=== PATIENT | female | born 1955 | race Asian ===

== ENCOUNTER 2016-02-13 11:48 | Observation (INO) | payer OTHER ==
[~2016-02-13] VITALS: Ht 144.8 cm; Wt 51.9 kg
[~2016-02-13 11:48] MED LIST: ACET325T9 PO; DONE5TAB33 PO; HYDR-971 PO; MEMA10TA PO; SERT50TA PO; SIMV40TA3 PO
[2016-02-13] MEDS ORDERED: ASPIRIN 81 MG TAB.CHEW PO ONE (12:15)
[2016-02-13] MEDS ORDERED: MORPHINE SULFATE 2 MG/ML DISP.SYRIN. IV PRN ×3 (12:15→15:47)
[2016-02-13] MEDS ORDERED: NITROGLYCERIN SUBLINGUAL 0.4 MG BOTTLE OF 25. SL PRN (12:15)
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
[2016-02-13 12:40] LABS: CALCIUM 9.3 mg/dL (8.5-10.1); CREATININE 0.8 mg/dL (0.6-1.0); GFR 72.9; POTASSIUM 3.8 mmol/L (3.5-5.1)
[2016-02-13 12:46] LABS: ALBUMIN 3.8 g/dL (3.4-5.0); DIRECT BILIRUBIN 0.1 mg/dL (0.0-0.2); TOTAL BILIRUBIN 0.4 mg/dL (0.2-1.0)
[2016-02-13 12:47] LABS: BASO % 1 % (0-3); EOS % 1 % (0-3); HEMATOCRIT 38.1 % (36.0-47.0); HEMOGLOBIN 12.9 g/dL (12.0-15.5); LYMPH % 37 % (24-48); MEAN CORPUSCULAR HEMOGLOBIN 31 pg (25-35); MEAN CORPUSCULAR HGB CONC 34 g/dL (31-37); MEAN CORPUSCULAR VOLUME 91 fL (79-100); MONO % 9 % (0-9); NEUT % 52 % (31-73); PLATELET COUNT 240 x10^3/uL (140-400); RED BLOOD COUNT 4.19 x10^6/uL (3.50-5.40); RED CELL DISTRIBUTION WIDTH 13.7 % (11.5-14.5); WHITE BLOOD COUNT 5.3 x10^3/uL (4.0-11.0)
[2016-02-13] MEDS ORDERED: ONDANSETRON PF 4 MG/2 ML VIAL. IV PRN (13:00)
[2016-02-13] MEDS ORDERED: HYDROMORPHONE 2 MG/ML VIAL. IV PRN (13:00)
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
--- NOTE | 2016-02-13 14:25 | EKG ---
[facility] [address] [place] [address] Test Date: 2016-02-13 Test Time: 12:00:35 Pat Name: KIESHA HE Department: Room: 563 1 Gender: F Roll Scale Man: : 1955 Requested By: DENNIS NORRIS Order Number: [id number] Reading MD: Talia Recinos Measurements Intervals Stem Rate: 50 P: 53 SD: 172 QRS: 17 QRSD: 84 T: 24 QT: 440 QTc: 400 Interpretive Statements SINUS RHYTHM T ABNORMALITY IN ANTEROSEPTAL LEADS CONSIDER MYOCARDIAL ISCHEMIA ABNORMAL ECG Electronically Signed On 02-16-2016 23:20:19 ENGINE LATHE TENDER by Talia Recinos
[2016-02-13 14:55] VITALS: BP 121/71
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
[2016-02-13] MEDS ORDERED: ACETAMINOPHEN 325 MG TABLET. PO PRN (15:45)
[2016-02-13] MEDS ORDERED: OXYCODONE IR 5 MG TABLET. PO PRN ×2 (16:00)
[2016-02-13 16:09] VITALS: BP 121/71
[2016-02-13 19:00] VITALS: BP 90/60
[2016-02-13] MEDS ORDERED: OXYC5TAB PO (20:01)
--- NOTE | 2016-02-13 20:01 | DISCH ---
DISCHARGE INSTRUCTIONS Condition on Discharge Condition on Discharge: Stable Activity After Discharge Activity Instructions for Disc: No restrictions Diet after Discharge Diet after Discharge: Regular Contacting the DR. after DC Call your doctor for: If your condition worsens Follow-Up Follow up with: PCP in 1 week SONIA ALICEA MD Feb 13, 2016 20:01
[2016-02-13] MEDS ORDERED: SIMVASTATIN 40 MG TABLET. PO SCH (21:00)
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
[2016-02-13 23:00] VITALS: BP 89/62
[2016-02-14] MEDS ORDERED: IV NORMAL SALINE 500ML BAG 500 ML IV ONE (00:30)
[2016-02-14 03:00] VITALS: BP 115/71
--- NOTE | 2016-02-14 08:02 | ACF ---
Admission Forms Criteria PAIN MANAGEMENT [facility] Clinical Indications for Admission to Inpatient Care (Place 'X' for any and all applicable criteria): Hospital admission is needed for appropriate care of the patient because of ANY ONE of the following are present (1)(2)(3)(4)(5): [X]I. Severe pain requiring acute inpatient management as indicated by ALL of the following (2)(5)(10): [X]a) Continuous or frequent (eg, every 2 to 4 hours) parenteral analgesics required [A] [ ]b) Necessity (ie, alternative approaches not effective) for analgesic regimen that can only be performed or initiated in inpatient setting [ ]II. Pain causing debilitation to the point of inability to function or be supported at any other level of care [ ]III. Severe side effects from pain medications as indicated by ANY ONE of the following (12)(13)(14)(15): [ ]a) Uncontrollable seizures [ ]b) Cardiac arrhythmias [ ]c) Severe volume depletion [ ]d) Vomiting that is uncontrollable at any other level of care [ ]e) Altered mental status (Debra coma scale score less than 13) [ ]f) Obstipation with inadequate GI function to maintain nutrition [ ]g) Dehydration that is severe or persistent The original [employer] content created by [employer] has been revised. The portions of the content which have been revised are identified through the use of italic text or in bold, and [facility] has neither reviewed nor approved the modified material. All other unmodified content is copyright [employer]. Please see references footnoted in the original [employer] edition 2016 Admission Criteria Met?: Yes ALCIDES EGAN Feb 14, 2016 08:02
[2016-02-14] MEDS ORDERED: DONEPEZIL HCL 5 MG TABLET. PO SCH (09:00)
[2016-02-14] MEDS ORDERED: SERTRALINE 50 MG TABLET. PO SCH (09:00)
[2016-02-14] MEDS ORDERED: MEMANTINE 10 MG TABLET. PO SCH (09:00)
== END 2016-02-14 07:46 | disposition home or self-care (01) ==
LOC: ER 11:48 → 5 SOUTH 13:00
PROVIDERS: ADMIT Internal Medicine Hematology & Oncology; ATTEND Internal Medicine Hematology & Oncology
DX: R07.89 Other chest pain (principal); J90 Pleural effusion, not elsewhere classified; E78.00 Pure hypercholesterolemia, unspecified; F03.90 Unspecified dementia, unspecified severity, without behavioral disturbance, psychotic disturbance, mood disturbance, and anxiety; G89.29 Other chronic pain; F32.9 Major depressive disorder, single episode, unspecified; M19.90 Unspecified osteoarthritis, unspecified site; I10 Essential (primary) hypertension; Z90.49 Acquired absence of other specified parts of digestive tract
CPT/HCPCS: 36415; 71010; 71250; 80048; 80076; 83690; 83880; 84484; 85027; 93005; 96361; 96374; 99285; G0238; G0378; J2270; J7040; G0379

== ENCOUNTER 2016-04-25 19:22 | Emergency (ER) | payer OTHER ==
[~2016-04-25 19:22] MED LIST changes: +OXYC5TAB PO
[2016-04-25 19:41] VITALS: BP 106/70
--- NOTE | 2016-04-25 20:12 | ED.ADGEN ---
Past Medical History Past Medical History: Arthritis, Dementia, Depression, Other Additional Past Medical Histor: DJD, CHRONIC PAIN Past Surgical History: Appendectomy, Hysterectomy Alcohol Use: None Drug Use: None Adult General Chief Complaint Chief Complaint: FEVER HPI HPI Patient is a 60 year old female presents emergency Department accompanied by her daughter for a 3 day history of fevers and generalized malaise and myalgias. Multiple members of the household had influenza recently. She has been taking Tylenol regularly. Her last dose was approximately 45 minutes prior to arrival. She denies any cough, chest pain, abdominal pain, dysuria. Review of Systems Review of Systems Constitutional: Denies fever or chills. [] Eyes: Denies change in visual acuity. [] HENT: Denies nasal congestion or sore throat. [] Respiratory: Denies cough or shortness of breath. [] Cardiovascular: Denies chest pain or edema. [] GI: Denies abdominal pain, nausea, vomiting, bloody stools or diarrhea. [] : Denies dysuria. [] Musculoskeletal: Denies back pain or joint pain. [] Integument: Denies rash. [] Neurologic: Denies headache, focal weakness or sensory changes. [] Endocrine: Denies polyuria or polydipsia. [] Lymphatic: Denies swollen glands. [] Psychiatric: Denies depression or anxiety. [] Current Medications Current Medications Current Medications Medications (Trade) Dose Ordered Sig/Matthew Start Time Stop Time Status Last Admin Dose Admin Ibuprofen 800 mg 800 mg 1X ONCE 04/25/16 20:30 04/25/16 20:31 DC 04/25/16 20:31 800 MG Ketorolac Tromethamine (Toradol) 15 mg 1X ONCE 04/25/16 22:15 04/25/16 22:16 DC 04/25/16 22:22 15 MG Oseltamivir Phosphate (Tamiflu) 75 mg 1X ONCE 04/25/16 22:15 04/25/16 22:16 DC 04/25/16 22:22 75 MG Sodium Chloride (Iv Sodium Chloride 0.9% 1000ml Bag) 1,000 ml @ 1,000 mls/hr Q1H 04/25/16 22:15 04/25/16 23:14 04/25/16 22:22 1,000 MLS/HR Allergies Allergies Allergies Coded Allergies Type Severity Reaction Last Updated Verified No Known Drug Allergies 06/14/14 No Physical Exam Physical Exam Constitutional: Well developed, well nourished, mild to moderate acute distress , unwell but non-toxic appearance. [] HENT: Normocephalic, atraumatic, bilateral external ears normal, oropharynx moist, no oral exudates, nose normal. [] Eyes: PERRLA, EOMI, conjunctiva normal, no discharge. [] Neck: Normal range of motion, no tenderness, supple, no stridor. [] Cardiovascular:Heart rate regular rhythm, no murmur [] Lungs & Thorax: Bilateral breath sounds clear to auscultation [] Abdomen: Bowel sounds normal, soft, no tenderness, no masses, no pulsatile masses. [] Skin: Warm, dry, no erythema, no rash. [] Back: No tenderness, no CVA tenderness. [] Extremities: No tenderness, no cyanosis, no clubbing, ROM intact, no edema. [] Neurologic: Alert and oriented X 3, normal motor function, normal sensory function, no focal deficits noted. [] Psychologic: Affect normal, judgement normal, mood normal. [] Current Patient Data Vital Signs Vital Signs Date Time Temp Pulse Resp B/P Pulse Ox O2 Delivery O2 Flow Rate FiO2 04/25/16 19:41 99.0 94 24 106/70 96 Room Air 99.0 Lab Values Laboratory Tests Test 04/25/16 20:16 04/25/16 20:33 White Blood Count 5.8x10^3/uL (4.0-11.0) Red Blood Count 4.01x10^6/uL (3.50-5.40) Hemoglobin 12.3g/dL (12.0-15.5) Hematocrit 36.9% (36.0-47.0) Mean Corpuscular Volume 92fL (79-100) Mean Corpuscular Hemoglobin 31pg (25-35) Mean Corpuscular Hemoglobin Concent 33g/dL (31-37) Red Cell Distribution Width 13.1% (11.5-14.5) Platelet Count 171x10^3/uL (140-400) Neutrophils (%) (Auto) 82% (31-73) H Lymphocytes (%) (Auto) 10% (24-48) L Monocytes (%) (Auto) 7% (0-9) Eosinophils (%) (Auto) 0% (0-3) Basophils (%) (Auto) 0% (0-3) Neutrophils # (Auto) 4.7x10^3uL (1.8-7.7) Lymphocytes # (Auto) 0.6x10^3/uL (1.0-4.8) L Monocytes # (Auto) 0.4x10^3/uL (0.0-1.1) Eosinophils # (Auto) 0.0x10^3/uL (0.0-0.7) Basophils # (Auto) 0.0x10^3/uL (0.0-0.2) Sodium Level 138mmol/L (136-145) Potassium Level 4.0mmol/L (3.5-5.1) Chloride Level 102mmol/L (98-107) Carbon Dioxide Level 27mmol/L (21-32) Anion Gap 9 (6-14) Blood Urea Nitrogen 16mg/dL (7-20) Creatinine 1.0mg/dL (0.6-1.0) Estimated GFR (Cockcroft-Gault) 56.4 Glucose Level 121mg/dL (70-99) H Lactic Acid Level 1.9mmol/L (0.4-2.0) Calcium Level 8.9mg/dL (8.5-10.1) Creatine Kinase 159U/L (26-192) Influenza Type A Antigen Negative (NEGATIVE) Influenza Type B Antigen Positive (NEGATIVE) Urine Collection Type Void Urine Color Yellow Urine Clarity Clear Urine pH 7.5 Urine Specific Ledbetter 1.015 Urine Protein Negativemg/dL (NEG-TRACE) Urine Glucose (UA) Negativemg/dL (NEG) Urine Ketones (Stick) Negativemg/dL (NEG) Urine Blood Negative (NEG) Urine Nitrite Negative (NEG) Urine Bilirubin Negative (NEG) Urine Urobilinogen Dipstick 0.2mg/dL (0.2 mg/dL) Urine Leukocyte Esterase Trace (NEG) Urine RBC Occ/HPF (0-2) Urine WBC 1-4/HPF (0-4) Urine Squamous Epithelial Cells Few/LPF Urine Bacteria 0/HPF (0-FEW) Laboratory Tests 04/25/16 20:16 Laboratory Tests 04/25/16 20:16 EKG EKG [] Radiology/Procedures Radiology/Procedures [] Course & Med Decision Making Course & Med Decision Making Pertinent Labs and Imaging studies reviewed. (See chart for details) IVF's, Labs, flu/strep, ibuprofen. The patient's influenza was positive. She is given a dose of Tamiflu and several liters of fluid here. She is being discharged home with a prescription for Tamiflu as well as supportive care and follow-up instructions. [] Dragon Disclaimer Dragon Disclaimer This electronic medical record was generated, in whole or in part, using a voice recognition dictation system. RD CAREY MD Apr 25, 2016 20:12
[2016-04-25] MEDS ORDERED: IBUPROFEN 800 MG TABLET. PO ONE (20:30)
[2016-04-25] MEDS ORDERED: IV NORMAL SALINE 1000ML BAG 1,000 ML IV SCH ×2 (20:30→22:15)
[2016-04-25 20:37] LABS: BASO % 0 % (0-3); EOS % 0 % (0-3); HEMATOCRIT 36.9 % (36.0-47.0); HEMOGLOBIN 12.3 g/dL (12.0-15.5); LYMPH # 0.6 x10^3/uL (1.0-4.8); LYMPH % 10 % (24-48); MEAN CORPUSCULAR HEMOGLOBIN 31 pg (25-35); MEAN CORPUSCULAR HGB CONC 33 g/dL (31-37); MEAN CORPUSCULAR VOLUME 92 fL (79-100); MONO % 7 % (0-9); NEUT % 82 % (31-73); PLATELET COUNT 171 x10^3/uL (140-400); RED BLOOD COUNT 4.01 x10^6/uL (3.50-5.40); RED CELL DISTRIBUTION WIDTH 13.1 % (11.5-14.5); WHITE BLOOD COUNT 5.8 x10^3/uL (4.0-11.0)
[2016-04-25 20:43] LABS: BILIRUBIN,URINE NEGATIVE (NEG); GLUCOSE,URINE NEGATIVE (NEG); NITRITE,URINE NEGATIVE (NEG); PH,URINE 7.5; PROTEIN,URINE NEGATIVE (NEG-TRACE); UROBILINOGEN,URINE 0.2 mg/dL (0.2 mg/dL)
[2016-04-25 20:52] LABS: CALCIUM 8.9 mg/dL (8.5-10.1); GFR 56.4
[2016-04-25 21:02] LABS: BACTERIA,URINE 0 /HPF (0-FEW); RBC,URINE OCC /HPF (0-2); SQUAMOUS EPITHELIAL CELL,UR FEW /LPF
[2016-04-25 21:46] LABS: OBC FLU VALID
[2016-04-25] MEDS ORDERED: OSEL75CA PO (21:57)
[2016-04-25] MEDS ORDERED: OSELTAMIVIR 75 MG CAPSULE PO ONE (22:15)
[2016-04-25] MEDS ORDERED: KETOROLAC 15 MG/ML VIAL. IV ONE (22:15)
[2016-04-26 05:34] LABS: NEGATIVE OBC STREP NEG; POSITIVE OBC STREP POS
--- NOTE | 2016-04-26 08:40 | RAD ---
Indication: Fever, dyspnea for 3 days. Technique: Upright portable chest radiograph was obtained. Comparison is from February 13, 2016. Findings: The lungs are clear. The heart is not enlarged and there is no heart failure. Thoracic aorta may be mildly tortuous. Leads overlie the patient. Impression: No acute thoracic findings.
== END 2016-04-25 22:56 | disposition home or self-care (01) ==
LOC: ER 19:22
DX: J11.1 Influenza due to unidentified influenza virus with other respiratory manifestations (principal); F03.90 Unspecified dementia, unspecified severity, without behavioral disturbance, psychotic disturbance, mood disturbance, and anxiety; F32.9 Major depressive disorder, single episode, unspecified; G89.29 Other chronic pain; M19.90 Unspecified osteoarthritis, unspecified site; Z90.710 Acquired absence of both cervix and uterus
CPT/HCPCS: 36415; 71010; 80048; 81001; 82550; 83605; 85027; 87070; 87086; 87804; 87880; 96361; 96374; 99285; J1885; J7030

== ENCOUNTER 2018-11-15 16:03 | Inpatient (IN) | payer OTHER ==
[~2018-11-15] VITALS: Ht 132.1 cm; Wt 51.3 kg
[~2018-11-15 16:03] MED LIST changes: -DONE5TAB33 PO; +DONE5TAB56 PO; +HYDR-3164 PO; -HYDR-971 PO; +LEVO500T59 PO; +OSEL75CA PO; -OXYC5TAB PO; +OXYC5TAB4 PO
[2018-11-15] MEDS ORDERED: LIDOCAINE 2% 20 ML VIAL. IJ ONE (16:30)
--- NOTE | 2018-11-15 16:40 | PHYS DOC ---
Past Medical History Past Medical History: Arthritis, Dementia, Depression, High Cholesterol, Other Additional Past Medical Histor: DJD Past Surgical History: Appendectomy, Hysterectomy Alcohol Use: None Drug Use: None Adult General Chief Complaint Chief Complaint: HAND PROBLEM HPI HPI Patient is a 63 year old female presents to the ER after chasing her goats this morning around 11 AM and states her L hand went through a rusted metal pitchfork. She has a history of dementia and her daughter was saying that she gets confused at times and has had this from them since the injury happened. Puncture wound is located on the Left hand in the middle of the palm. 06/17 pain. Review of Systems Review of Systems Constitutional: Denies fever or chills [] Eyes: Denies change in visual acuity, redness, or eye pain [] HENT: Denies nasal congestion or sore throat [] Respiratory: Denies cough or shortness of breath [] Cardiovascular: No additional information not addressed in HPI [] GI: Denies abdominal pain, nausea, vomiting, bloody stools or diarrhea [] : Denies dysuria or hematuria [] Musculoskeletal: Denies back pain or joint pain [] Integument: Reports L hand pain/puncture wound. Neurologic: Denies headache, focal weakness or sensory changes [] Endocrine: Denies polyuria or polydipsia [] Complete systems were reviewed and found to be within normal limits, except as documented in this note. Current Medications Current Medications Current Medications Medications (Trade) Dose Ordered Sig/Matthew Start Time Stop Time Status Last Admin Dose Admin Diphtheria/ Tetanus/Acell Pertussis (Boostrix) 0.5 ml ONCE ONCE 11/15/18 17:15 11/15/18 17:16 11/15/18 16:47 0.5 ML Lidocaine HCl 20 ml 1X ONCE 11/15/18 16:30 11/15/18 16:32 DC 11/15/18 16:45 20 ML Allergies Allergies Allergies Coded Allergies Type Severity Reaction Last Updated Verified No Known Drug Allergies 06/14/14 No Physical Exam Physical Exam Constitutional: Well developed, well nourished, no acute distress, non-toxic appearance. [] HENT: Normocephalic, atraumatic, bilateral external ears normal, oropharynx moist, no oral exudates, nose normal. [] Eyes: PERRLA, EOMI, conjunctiva normal, no discharge. [] Neck: Normal range of motion, no tenderness, supple, no stridor. [] Cardiovascular:Heart rate regular rhythm, no murmur [] Lungs & Thorax: Bilateral breath sounds clear to auscultation [] Abdomen: Bowel sounds normal, soft, no tenderness, no masses, no pulsatile masses. [] Skin: 0.25 cm puncture wound to L hand. Back: No tenderness, no CVA tenderness. [] Extremities: No tenderness, no cyanosis, no clubbing, ROM intact, no edema. [] Neurologic: Alert and oriented X 3, normal motor function, normal sensory function, no focal deficits noted. [] Psychologic: Affect normal, judgement normal, mood normal. [] Current Patient Data Vital Signs Vital Signs Date Time Temp Pulse Resp B/P (MAP) Pulse Ox O2 Delivery O2 Flow Rate FiO2 11/15/18 16:28 98.9 56 18 145/80 (101) 99 Room Air 98.9 EKG EKG [] Radiology/Procedures Radiology/Procedures [][facility] [address] [place], [place] [id number] IMAGING REPORT Signed PATIENT: KIESHA HE ACCOUNT: [id number] : 1955 LOCATION: ER AGE: 63 SEX: F EXAM STATUS: REG ER ORD. PHYSICIAN: TASHA RAE APRN REASON: MCS puncture wound PROCEDURE: HAND LEFT 3V HAND LEFT 3V 11/15/2018 4:38 PM INDICATION: Puncture wound COMPARISON: None available. TECHNIQUE: 3 views of the left hand are provided. FINDINGS: There is no acute fracture or dislocation. Bone mineralization is within normal limits. Joint spaces are maintained. Soft tissue swelling with subcutaneous gas is identified involving the thenar region. IMPRESSION: No acute fracture or dislocation. Thenar soft tissue swelling with subcutaneous gas. No radiopaque foreign density. Electronically signed by: Yadi Valiente MD (11/15/2018 4:48 PM) [facility] DICTATED and SIGNED BY: YADI VALIENTE MD DATE: 11/15/18 [id number] Course & Med Decision Making Course & Med Decision Making Pertinent Labs and Imaging studies reviewed. (See chart for details) Will get x-ray. X-ray shows subcutaneous gas. Nursing cleaned out wound and applied pressure dressing. Will admit to Dr. Ulrich who accepts admission. Will consult I/D. Will order Labs and Zosyn. Jag Disclaimer Jag Disclaimer This electronic medical record was generated, in whole or in part, using a voice recognition dictation system. Departure Departure Impression: Primary Impression: Puncture wound Additional Impression: Cellulitis Disposition: ADMITTED INPATIENT Admitting Physician: EFREN Condition: STABLE Referrals: ROCKY ALLAN MD (PCP) Problem Qualifiers Additional Impression: Cellulitis Site of cellulitis: extremity Site of cellulitis of extremity: upper extremity Laterality: left Qualified Codes: L03.114 - Cellulitis of left upper limb TASHA RAE APRN Nov 15, 2018 16:40
--- NOTE | 2018-11-15 16:51 | RAD ---
HAND LEFT 3V 11/15/2018 4:38 PM INDICATION: Puncture wound COMPARISON: None available. TECHNIQUE: 3 views of the left hand are provided. FINDINGS: There is no acute fracture or dislocation. Bone mineralization is within normal limits. Joint spaces are maintained. Soft tissue swelling with subcutaneous gas is identified involving the thenar region. IMPRESSION: No acute fracture or dislocation. Thenar soft tissue swelling with subcutaneous gas. No radiopaque foreign density. Electronically signed by: Skylar Tidwell MD (11/15/2018 4:48 PM) [facility]
[2018-11-15] MEDS ORDERED: DIPHTH,PERTUSS(ACELL),TET TOX 0.5 ML DISP.SYRIN. VAX IM ONE (17:15)
[2018-11-15] MEDS ORDERED: ONDANSETRON PF 4 MG/2 ML VIAL. IV PRN (17:15)
[2018-11-15] MEDS ORDERED: IV NORMAL SALINE 500ML BAG 500 ML IV ONE (17:30)
[2018-11-15 17:39] LABS: BASO # 0.1 x10^3/uL (0.0-0.2); BASO % 1 % (0-3); EOS % 0 % (0-3); HEMATOCRIT 42.1 % (36.0-47.0); HEMOGLOBIN 14.2 g/dL (12.0-15.5); LYMPH % 23 % (24-48); MEAN CORPUSCULAR HEMOGLOBIN 31 pg (25-35); MEAN CORPUSCULAR HGB CONC 34 g/dL (31-37); MEAN CORPUSCULAR VOLUME 93 fL (79-100); MONO # 0.5 x10^3/uL (0.0-1.1); MONO % 6 % (0-9); NEUT # 6.3 x10^3/uL (1.8-7.7); NEUT % 71 % (31-73); PLATELET COUNT 213 x10^3/uL (140-400); RED BLOOD COUNT 4.54 x10^6/uL (3.50-5.40); RED CELL DISTRIBUTION WIDTH 13.3 % (11.5-14.5)
[2018-11-15 17:54] LABS: ALBUMIN 4.6 g/dL (3.4-5.0); ALBUMIN/GLOBULIN RATIO 1.4 (1.0-1.7); CALCIUM 9.6 mg/dL (8.5-10.1); CREATININE 0.8 mg/dL (0.6-1.0); GFR 72.2; POTASSIUM 4.2 mmol/L (3.5-5.1); TOTAL BILIRUBIN 0.6 mg/dL (0.2-1.0); TOTAL PROTEIN 7.9 g/dL (6.4-8.2)
[2018-11-15] MEDS ORDERED: PIPERACILLIN/TAZOBACTAM 3.375 GM in IV NORMAL SALINE 50ML 50 ML IV ONE (18:00)
[2018-11-15] MEDS ORDERED: fentaNYL PF VIAL 100 MCG/2 ML VIAL IV ONE (18:45)
[2018-11-15] MEDS ORDERED: PIP/TAZO PER PHARMACY MC PRN (19:45)
[2018-11-15] MEDS ORDERED: VANCOMYCIN 1.25 GM in IV NORMAL SALINE 250ML 250 ML IV ONE (20:00)
[2018-11-15] MEDS: MORPHINE SULFATE 2 MG/ML VIAL. IV PRN ×2 (20:27→22:26)
[2018-11-15] MEDS: VANCOMYCIN PER PHARMACY MC PRN (20:43)
--- NOTE | 2018-11-15 20:45 | NUR ---
Pharmacy Vancomycin Dosing Note S: Consulted to monitor and dose vancomycin started 11/15/18. O: KIESHA HE is a 63 year old F with PUNCTURE WOUND. Other Antibiotics: CLEOCIN,ZOSYN LABS: Last BUN: 34 Last Creatinine: 0.8 Creatinine Clearance: 53 mL/min Last WBC: 9.0 Tmax (past 24 hours): 98.9 Vancomycin Dosing: Dosing Weight: Actual Target Trough: 10-20 A: Based on: VANCO dosing guidelines P: 1. Begin Vancomycin 1250mg LOAD dose, then 750 mg IV q24h 2. Follow up Trough level on 11/17/18 at 1930 3. Pharmacy will continue to monitor, follow and adjust therapy as needed. JOE GILMORE, [facility], 11/15/18 [id number]
--- NOTE | 2018-11-15 21:01 | HP ---
ADMIT DATE: 11/15/2018 CHIEF COMPLAINT: Hand wound with pitchfork (the pitchfork apparently had animal fecal debris on it). HISTORY OF PRESENT ILLNESS: The patient is a pleasant 63-year-old lady who was stuck her hand with a pitchfork. She was chasing some around 11:00 this morning. Her hand went through rusted metal pitchfork with fecal debris on it. They did some imaging in the ER showing some gas forming organisms. I discussed the case with them. We are going to admit the patient and consult Orthopedics and Infectious Disease and place her on IV Zosyn. PAST MEDICAL HISTORY: Dementia, arthritis, depression, hyperlipidemia, degenerative joint disease, appendectomy, and hysterectomy. ALLERGIES: None. FAMILY HISTORY: Hypertension. SOCIAL HISTORY: She does not drink, smoke or take drugs. MEDICATIONS: Reviewed, please refer to the MRAD. REVIEW OF SYSTEMS: GENERAL: No history of weight change, weakness or fevers. SKIN: No bruising, hair changes or rashes. EYES: No blurred, double or loss of vision. NOSE AND THROAT: No history of nosebleeds, hoarseness or sore throat. HEART: No history of palpitations, chest pain or shortness of breath on exertion. LUNGS: Denies cough, hemoptysis, wheezing or shortness of breath. GASTROINTESTINAL: Denies changes in appetite, nausea, vomiting, diarrhea or constipation. GENITOURINARY: No history of frequency, urgency, hesitancy or nocturia. NEUROLOGIC: Denies history of numbness, tingling, tremor or weakness. PSYCHIATRIC: No history of panic, anxiety or depression. ENDOCRINE: No history of heat or cold intolerance, polyuria or polydipsia. EXTREMITIES: She complains of right hand pain. PHYSICAL EXAMINATION: VITALS: Within normal limits and are stable. GENERAL: No apparent distress. Alert and oriented. HEENT: Head is normocephalic, atraumatic, pupils were equally round and reactive to light and accommodation. NECK: Supple, no JVD, no thyromegaly was noted. LUNGS: Clear to auscultation in all lung echevarria without rhonchi or wheezing. HEART: RRR, S1, S2 present. Peripheral pulses intact, no obvious murmurs were noted. ABDOMEN: Soft, nontender. Positive bowel sounds no organomegaly, normal bowel sounds. EXTREMITIES: The right hand has clean, dry and intact dressing, is somewhat swollen and painful to touch. NEUROLOGIC: Normal speech, normal tone. A & O x3, moves all extremities, no obvious focal deficits. PSYCHIATRIC: Normal affect, normal mood. Stable. SKIN: No ulcerations or rashes, good skin turgor, no jaundice. VASCULAR: Good capillary refill, neurovascular bundle appears to be intact. LABORATORY DATA: Hematology is normal. Electrolytes are normal except for sodium 146 and BUN of 34. ASSESSMENT AND PLAN: Right hand wound with pitchfork through the hand with fecal debris on the pitchfork and incidental finding of gas forming organisms on imaging, suspect she could have Clostridium perfringens or some other gas forming organism. We will start IV Zosyn. We consulted Infectious Disease. They also add in vancomycin and clindamycin, we certainly appreciate their input. Consult Orthopedics. DVT prophylaxis. IV fluids. Full code. TERE WAY DO DR: STACEY/katy JOB#: [id number] / [id number]
[2018-11-15] MEDS: CLINDAMYCIN 600MG PREMIX 50 ML IV SCH (22:07)
[2018-11-16] VITALS (10 sets, daily range): BP systolic 98–153; BP diastolic 53–85
[2018-11-16] MEDS: MORPHINE SULFATE 2 MG/ML VIAL. IV PRN ×5 (00:23→11:25)
[2018-11-16] MEDS: PIPERACILLIN/TAZOBACTAM 3.375 GM in IV NORMAL SALINE 50ML 50 ML IV SCH ×5 (00:24→23:59)
[2018-11-16] MEDS: CLINDAMYCIN 600MG PREMIX 50 ML IV SCH ×3 (06:21→21:30)
[2018-11-16] MEDS ORDERED: FLUCONAZOLE 400MG/200ML PREMIX 200 ML IV SCH (08:15)
--- NOTE | 2018-11-16 08:20 | PDOC ---
Infectious Disease Note Vital Sign Vital Signs Vital Signs Date Time Temp Pulse Resp B/P (MAP) Pulse Ox O2 Delivery O2 Flow Rate FiO2 11/16/18 07:47 Room Air 11/16/18 03:00 99.8 61 16 98/53 (68) 91 99.8 Labs Lab Laboratory Tests Test 11/15/18 17:29 White Blood Count 9.0 x10^3/uL (4.0-11.0) Red Blood Count 4.54 x10^6/uL (3.50-5.40) Hemoglobin 14.2 g/dL (12.0-15.5) Hematocrit 42.1 % (36.0-47.0) Mean Corpuscular Volume 93 fL (79-100) Mean Corpuscular Hemoglobin 31 pg (25-35) Mean Corpuscular Hemoglobin Concent 34 g/dL (31-37) Red Cell Distribution Width 13.3 % (11.5-14.5) Platelet Count 213 x10^3/uL (140-400) Neutrophils (%) (Auto) 71 % (31-73) Lymphocytes (%) (Auto) 23 % (24-48) Monocytes (%) (Auto) 6 % (0-9) Eosinophils (%) (Auto) 0 % (0-3) Basophils (%) (Auto) 1 % (0-3) Neutrophils # (Auto) 6.3 x10^3/uL (1.8-7.7) Lymphocytes # (Auto) 2.0 x10^3/uL (1.0-4.8) Monocytes # (Auto) 0.5 x10^3/uL (0.0-1.1) Eosinophils # (Auto) 0.0 x10^3/uL (0.0-0.7) Basophils # (Auto) 0.1 x10^3/uL (0.0-0.2) Sodium Level 146 mmol/L (136-145) Potassium Level 4.2 mmol/L (3.5-5.1) Chloride Level 107 mmol/L (98-107) Carbon Dioxide Level 29 mmol/L (21-32) Anion Gap 10 (6-14) Blood Urea Nitrogen 34 mg/dL (7-20) Creatinine 0.8 mg/dL (0.6-1.0) Estimated GFR (Cockcroft-Gault) 72.2 BUN/Creatinine Ratio 43 (6-20) Glucose Level 94 mg/dL (70-99) Calcium Level 9.6 mg/dL (8.5-10.1) Total Bilirubin 0.6 mg/dL (0.2-1.0) Aspartate Amino Transf (AST/SGOT) 26 U/L (15-37) Alanine Aminotransferase (ALT/SGPT) 27 U/L (14-59) Alkaline Phosphatase 69 U/L (46-116) Total Protein 7.9 g/dL (6.4-8.2) Albumin 4.6 g/dL (3.4-5.0) Albumin/Globulin Ratio 1.4 (1.0-1.7) Objective Assessment Left hand puncture wound from a stick vs pitchfork 11/15 Barnyard exposure (chickens/Goats/Pigs) Subjective Fever Dementia Plan Plan of Care Did get Tetanus 11/15 Started Zosyn/Vanc/Clinda 11/15 Consulted Ortho 11/15 - await eval Add fluconazole for now F/u labs in am and cults - if obtained D/w family # [id number] NAI GARCIA MD Nov 16, 2018 08:20
[2018-11-16] MEDS: FLUCONAZOLE 200MG/100ML PREMIX 100 ML IV SCH (09:44)
--- NOTE | 2018-11-16 10:04 | PDOC ---
PROGRESS NOTES Chief Complaint Chief Complaint PAST MEDICAL HISTORY: Dementia, arthritis, depression, hyperlipidemia, degenerative joint disease, appendectomy, and hysterectomy. ALLERGIES: None. FAMILY HISTORY: Hypertension. SOCIAL HISTORY: She does not drink, smoke or take drugs. MEDICATIONS: Reviewed, please refer to the MRAD. History of Present Illness History of Present Illness ASSESSMENT AND PLAN: Right hand wound with pitchfork through the hand with fecal debris on the pitchfork and incidental finding of gas forming organisms on imaging, could have Clostridium perfringens or some other gas forming organism. [place] accident admitted start IV Zosyn. consulted Infectious Disease. vancomycin and clindamycin, Consult Orthopedics. DVT prophylaxis. IV fluids. Full code. 38 min pt exam, chart review, > 50% of time spent with exam, chart review, pt care coordination Vitals Vitals Vital Signs Date Time Temp Pulse Resp B/P (MAP) Pulse Ox O2 Delivery O2 Flow Rate FiO2 11/16/18 09:05 Room Air 11/16/18 07:00 99.9 81 17 121/64 (83) 94 99.9 Physical Exam Physical Exam Eyes: PERRLA, EOMI, conjunctiva normal, no discharge. [] Neck: Normal range of motion, no tenderness, supple, no stridor. [] Cardiovascular:Heart rate regular rhythm, no murmur [] Lungs & Thorax: Bilateral breath sounds clear to auscultation [] Abdomen: Bowel sounds normal, soft, no tenderness, no masses, no pulsatile masses. [] Skin: 0.25 cm puncture wound to L hand. Back: No tenderness, no CVA tenderness. [] Extremities: No tenderness, no cyanosis, no clubbing, ROM intact, no edema. [] Neurologic: Alert and oriented X 3, normal motor function, normal sensory function, no focal deficits noted. [] Psychologic: Affect normal, judgement normal, mood normal. [] General: Oriented X3, Cooperative Heart: Regular rate Lungs: Clear Abdomen: Soft, No tenderness Extremities: No cyanosis Labs LABS INDICATION: Puncture wound COMPARISON: None available. TECHNIQUE: 3 views of the left hand are provided. FINDINGS: There is no acute fracture or dislocation. Bone mineralization is within normal limits. Joint spaces are maintained. Soft tissue swelling with subcutaneous gas is identified involving the thenar region. IMPRESSION: No acute fracture or dislocation. Thenar soft tissue swelling with subcutaneous gas. No radiopaque foreign density. Electronically signed by: Yadi Tidwell MD (11/15/2018 4:48 PM) [facility] DICTATED and SIGNED BY: YADI TIDWELL MD DATE: 11/15/18 1794 Laboratory Tests Test 11/15/18 17:29 White Blood Count 9.0 x10^3/uL (4.0-11.0) Red Blood Count 4.54 x10^6/uL (3.50-5.40) Hemoglobin 14.2 g/dL (12.0-15.5) Hematocrit 42.1 % (36.0-47.0) Mean Corpuscular Volume 93 fL (79-100) Mean Corpuscular Hemoglobin 31 pg (25-35) Mean Corpuscular Hemoglobin Concent 34 g/dL (31-37) Red Cell Distribution Width 13.3 % (11.5-14.5) Platelet Count 213 x10^3/uL (140-400) Neutrophils (%) (Auto) 71 % (31-73) Lymphocytes (%) (Auto) 23 % (24-48) Monocytes (%) (Auto) 6 % (0-9) Eosinophils (%) (Auto) 0 % (0-3) Basophils (%) (Auto) 1 % (0-3) Neutrophils # (Auto) 6.3 x10^3/uL (1.8-7.7) Lymphocytes # (Auto) 2.0 x10^3/uL (1.0-4.8) Monocytes # (Auto) 0.5 x10^3/uL (0.0-1.1) Eosinophils # (Auto) 0.0 x10^3/uL (0.0-0.7) Basophils # (Auto) 0.1 x10^3/uL (0.0-0.2) Sodium Level 146 mmol/L (136-145) Potassium Level 4.2 mmol/L (3.5-5.1) Chloride Level 107 mmol/L (98-107) Carbon Dioxide Level 29 mmol/L (21-32) Anion Gap 10 (6-14) Blood Urea Nitrogen 34 mg/dL (7-20) Creatinine 0.8 mg/dL (0.6-1.0) Estimated GFR (Cockcroft-Gault) 72.2 BUN/Creatinine Ratio 43 (6-20) Glucose Level 94 mg/dL (70-99) Calcium Level 9.6 mg/dL (8.5-10.1) Total Bilirubin 0.6 mg/dL (0.2-1.0) Aspartate Amino Transf (AST/SGOT) 26 U/L (15-37) Alanine Aminotransferase (ALT/SGPT) 27 U/L (14-59) Alkaline Phosphatase 69 U/L (46-116) Total Protein 7.9 g/dL (6.4-8.2) Albumin 4.6 g/dL (3.4-5.0) Albumin/Globulin Ratio 1.4 (1.0-1.7) Assessment and Plan Assessmemt and Plan Problems Medical Problems: (1) Cellulitis Status: Acute (2) Puncture wound Status: Acute Comment Review of Relevant I have reviewed the following items cedric (where applicable) has been applied. Labs Laboratory Tests Test 11/15/18 17:29 White Blood Count 9.0 x10^3/uL (4.0-11.0) Red Blood Count 4.54 x10^6/uL (3.50-5.40) Hemoglobin 14.2 g/dL (12.0-15.5) Hematocrit 42.1 % (36.0-47.0) Mean Corpuscular Volume 93 fL (79-100) Mean Corpuscular Hemoglobin 31 pg (25-35) Mean Corpuscular Hemoglobin Concent 34 g/dL (31-37) Red Cell Distribution Width 13.3 % (11.5-14.5) Platelet Count 213 x10^3/uL (140-400) Neutrophils (%) (Auto) 71 % (31-73) Lymphocytes (%) (Auto) 23 % (24-48) Monocytes (%) (Auto) 6 % (0-9) Eosinophils (%) (Auto) 0 % (0-3) Basophils (%) (Auto) 1 % (0-3) Neutrophils # (Auto) 6.3 x10^3/uL (1.8-7.7) Lymphocytes # (Auto) 2.0 x10^3/uL (1.0-4.8) Monocytes # (Auto) 0.5 x10^3/uL (0.0-1.1) Eosinophils # (Auto) 0.0 x10^3/uL (0.0-0.7) Basophils # (Auto) 0.1 x10^3/uL (0.0-0.2) Sodium Level 146 mmol/L (136-145) Potassium Level 4.2 mmol/L (3.5-5.1) Chloride Level 107 mmol/L (98-107) Carbon Dioxide Level 29 mmol/L (21-32) Anion Gap 10 (6-14) Blood Urea Nitrogen 34 mg/dL (7-20) Creatinine 0.8 mg/dL (0.6-1.0) Estimated GFR (Cockcroft-Gault) 72.2 BUN/Creatinine Ratio 43 (6-20) Glucose Level 94 mg/dL (70-99) Calcium Level 9.6 mg/dL (8.5-10.1) Total Bilirubin 0.6 mg/dL (0.2-1.0) Aspartate Amino Transf (AST/SGOT) 26 U/L (15-37) Alanine Aminotransferase (ALT/SGPT) 27 U/L (14-59) Alkaline Phosphatase 69 U/L (46-116) Total Protein 7.9 g/dL (6.4-8.2) Albumin 4.6 g/dL (3.4-5.0) Albumin/Globulin Ratio 1.4 (1.0-1.7) Laboratory Tests Test 11/15/18 17:29 White Blood Count 9.0 x10^3/uL (4.0-11.0) Red Blood Count 4.54 x10^6/uL (3.50-5.40) Hemoglobin 14.2 g/dL (12.0-15.5) Hematocrit 42.1 % (36.0-47.0) Mean Corpuscular Volume 93 fL (79-100) Mean Corpuscular Hemoglobin 31 pg (25-35) Mean Corpuscular Hemoglobin Concent 34 g/dL (31-37) Red Cell Distribution Width 13.3 % (11.5-14.5) Platelet Count 213 x10^3/uL (140-400) Neutrophils (%) (Auto) 71 % (31-73) Lymphocytes (%) (Auto) 23 % (24-48) Monocytes (%) (Auto) 6 % (0-9) Eosinophils (%) (Auto) 0 % (0-3) Basophils (%) (Auto) 1 % (0-3) Neutrophils # (Auto) 6.3 x10^3/uL (1.8-7.7) Lymphocytes # (Auto) 2.0 x10^3/uL (1.0-4.8) Monocytes # (Auto) 0.5 x10^3/uL (0.0-1.1) Eosinophils # (Auto) 0.0 x10^3/uL (0.0-0.7) Basophils # (Auto) 0.1 x10^3/uL (0.0-0.2) Sodium Level 146 mmol/L (136-145) Potassium Level 4.2 mmol/L (3.5-5.1) Chloride Level 107 mmol/L (98-107) Carbon Dioxide Level 29 mmol/L (21-32) Anion Gap 10 (6-14) Blood Urea Nitrogen 34 mg/dL (7-20) Creatinine 0.8 mg/dL (0.6-1.0) Estimated GFR (Cockcroft-Gault) 72.2 BUN/Creatinine Ratio 43 (6-20) Glucose Level 94 mg/dL (70-99) Calcium Level 9.6 mg/dL (8.5-10.1) Total Bilirubin 0.6 mg/dL (0.2-1.0) Aspartate Amino Transf (AST/SGOT) 26 U/L (15-37) Alanine Aminotransferase (ALT/SGPT) 27 U/L (14-59) Alkaline Phosphatase 69 U/L (46-116) Total Protein 7.9 g/dL (6.4-8.2) Albumin 4.6 g/dL (3.4-5.0) Albumin/Globulin Ratio 1.4 (1.0-1.7) Medications Current Medications Lidocaine HCl 20 ml 1X ONCE IJ Last administered on 11/15/18at 16:45; Start 11/15/18 at 16:30; Stop 11/15/18 at 16:32; Status DC Diphtheria/ Tetanus/Acell Pertussis (Boostrix) 0.5 ml ONCE ONCE VAX IM Last ad ministered on 11/15/18at 16:47; Start 11/15/18 at 17:15; Stop 11/15/18 at 17:16; Status DC Piperacillin Sod/ Tazobactam Sod 3.375 gm/Sodium Chloride 50 ml @ 100 mls/hr 1X ONCE IV Last administered on 11/15/18at 17:41; Start 11/15/18 at 18:00; Stop 11/15/18 at 18:29; Status DC Ondansetron HCl (Zofran) 4 mg PRN Q8HRS PRN IV NAUSEA/VOMITING; Start 11/15/18 at 17:15; Stop 11/16/18 at 17:14 Sodium Chloride 500 ml @ 500 mls/hr 1X ONCE IV Last administered on 11/15/18at 18:27; Start 11/15/18 at 17:30; Stop 11/15/18 at 18:29; Status DC Fentanyl Citrate (Fentanyl 2ml Vial) 50 mcg 1X ONCE IV Last administered on 11/15/18at 18:32; Start 11/15/18 at 18:45; Stop 11/15/18 at 18:46; Status DC Piperacillin Sod/ Tazobactam Sod (Zosyn Per Pharmacy) 1 each PRN DAILY PRN MC SEE COMMENTS; Start 11/15/18 at 19:45 Vancomycin HCl (Vanco Per Pharmacy) 1 each PRN DAILY PRN MC SEE COMMENTS Last administered on 11/15/18at 20:43; Start 11/15/18 at 19:45 Clindamycin Phosphate 50 ml @ 100 mls/hr Q8HRS IV Last administered on at 06:21; Start 11/15/18 at 22:00 Vancomycin HCl 1.25 gm/Sodium Chloride 250 ml @ 166.667 mls/hr 1X ONCE IV Last administered on 11/15/18at 20:11; Start 11/15/18 at 20:00; Stop 11/15/18 at 21:29; Status DC Piperacillin Sod/ Tazobactam Sod 3.375 gm/Sodium Chloride 50 ml @ 100 mls/hr Q6HRS IV Last administered on 11/16/18at 05:25; Start 11/16/18 at 00:00 Morphine Sulfate (Morphine Sulfate) 2 mg PRN Q2HR PRN IV PAIN Last administered on 11/16/18at 07:47; Start 11/15/18 at 19:45 Vancomycin HCl 750 mg/Sodium Chloride 250 ml @ 250 mls/hr Q24H IV ; Start 11/16/18 at 20:00 Vancomycin HCl (Vancomycin Trough Level) 1 each 1X ONCE MC ; Start 11/17/18 at 19:30; Stop 11/17/18 at 19:31 Fluconazole/ Sodium Chloride 200 ml @ 100 mls/hr Q24H IV ; Start 11/16/18 at 08:15; Status Cancel Fluconazole/ Sodium Chloride 100 ml @ 100 mls/hr Q24H IV Last administered on 11/16/18at 09:44; Start 11/16/18 at 09:00 Active Scripts Active Levaquin (Levofloxacin) 500 Mg Tablet 1 Tab PO DAILY Tamiflu (Oseltamivir Phosphate) 75 Mg Capsule 1 Cap PO BID Oxycodone Hcl 5 Mg Tablet 5 Mg PO PRN Q4HRS PRN Reported Simvastatin 40 Mg Tablet 2 Tab PO QHS Aricept (Donepezil Hcl) 5 Mg Tablet 1 Tab PO DAILY [place] 5-325 Tablet (Acetaminophen/Hydrocodone Bitart) 1 Each Tablet 1-2 Tab PO Q4-6HRS Tylenol (Acetaminophen) 325 Mg Tablet 1 Tab PO PRN Q4HRS Zoloft (Sertraline Hcl) 50 Mg Tablet 1 Tab PO DAILY Namenda (Memantine Hcl) 10 Mg Tablet 10 Mg PO DAILY Vitals/I & O Vital Sign - Last 24 Hours 11/15/18 11/15/18 11/15/18 11/15/18 16:28 17:18 17:45 18:32 Temp 98.9 98.9 Pulse 56 56 56 Resp 18 16 16 18 B/P (MAP) 145/80 (101) 180/96 (124) 165/79 (107) Pulse Ox 99 99 99 98 O2 Delivery Room Air Room Air Room Air 11/15/18 11/15/18 11/15/18 11/15/18 19:02 20:00 20:27 20:57 O2 Delivery Room Air Room Air Room Air Room Air 11/15/18 11/15/18 11/16/18 11/16/18 22:26 22:56 00:53 02:21 O2 Delivery Room Air Room Air Nasal Cannula Room Air 11/16/18 11/16/18 11/16/18 11/16/18 02:51 03:00 05:28 05:58 Temp 99.8 99.8 Pulse 61 Resp 16 B/P (MAP) 98/53 (68) Pulse Ox 91 O2 Delivery Room Air Room Air Room Air Room Air 11/16/18 11/16/18 11/16/18 11/16/18 07:00 07:47 08:00 09:05 Temp 99.9 99.9 Pulse 81 Resp 17 B/P (MAP) 121/64 (83) Pulse Ox 94 O2 Delivery Room Air Room Air Room Air Room Air Intake and Output 11/15/18 11/15/18 11/16/18 15:00 23:00 07:00 Intake Total 550 ml Balance 550 ml DOMENICA CHEUNG MD Nov 16, 2018 10:04
[2018-11-16] MEDS ORDERED: FLU VAX QS 2019-20 (36MOS+)/PF 0.5 ML SYRINGE. VAX IM ONE (10:30)
--- NOTE | 2018-11-16 11:27 | NUR ---
SS following for discharge planning. SS reviewed pt chart. Pt is from home and is currently on room air. SS will continue to follow for discharge planning.
--- NOTE | 2018-11-16 11:42 | PDOC2 ---
CONSULT Date of Consult Date of Consult DATE: 11/16/18 TIME: 11:31 Reason for Consult Reason for Consult: Patient with puncture wound to left hand palm area with dirty barnyard implement while chasing goats. Referring Physician Referring Physician: Dr Ulrich Identification/Chief Complaint Chief Complaint left hand pain form puncture wound Source Source: Caregiver, Chart review History of Present Illness Reason for Visit: patient chasing goats and was punctured in left hand palm with dirty implement. Past Medical History Cardiovascular: HTN, Hyperlipidemia Pulmonary: No pertinent hx CENTRAL NERVOUS SYSTEM: Dementia GI: Other Heme/Onc: No pertinent hx Hepatobiliary: No pertinent hx Psych: Depression Rheumatologic: Other Infectious disease: No pertinent hx Renal/: No pertinent hx Endocrine: No pertinent hx Past Surgical History Past Surgical History: Appendectomy, Hysterectomy Family History Family History: No Significant, Hypertension Social History ALCOHOL: none Drugs: None Lives: with Family Current Problem List Problem List Problems Medical Problems: (1) Cellulitis Status: Acute (2) Puncture wound Status: Acute Current Medications Current Medications Current Medications Lidocaine HCl 20 ml 1X ONCE IJ Last administered on 11/15/18at 16:45; Start 11/15/18 at 16:30; Stop 11/15/18 at 16:32; Status DC Diphtheria/ Tetanus/Acell Pertussis (Boostrix) 0.5 ml ONCE ONCE VAX IM Last administered on 11/15/18at 16:47; Start 11/15/18 at 17:15; Stop 11/15/18 at 17:16; Status DC Piperacillin Sod/ Tazobactam Sod 3.375 gm/Sodium Chloride 50 ml @ 100 mls/hr 1X ONCE IV Last administered on 11/15/18at 17:41; Start 11/15/18 at 18:00; Stop 11/15/18 at 18:29; Status DC Ondansetron HCl (Zofran) 4 mg PRN Q8HRS PRN IV NAUSEA/VOMITING; Start 11/15/18 at 17:15; Stop 11/16/18 at 17:14 Sodium Chloride 500 ml @ 500 mls/hr 1X ONCE IV Last administered on 11/15/18at 18:27; Start 11/15/18 at 17:30; Stop 11/15/18 at 18:29; Status DC Fentanyl Citrate (Fentanyl 2ml Vial) 50 mcg 1X ONCE IV Last administered on 10/8/19at 18:32; Start 11/15/18 at 18:45; Stop 11/15/18 at 18:46; Status DC Piperacillin Sod/ Tazobactam Sod (Zosyn Per Pharmacy) 1 each PRN DAILY PRN MC SEE COMMENTS; Start 11/15/18 at 19:45 Vancomycin HCl (Vanco Per Pharmacy) 1 each PRN DAILY PRN MC SEE COMMENTS Last administered on 11/15/18at 20:43; Start 11/15/18 at 19:45 Clindamycin Phosphate 50 ml @ 100 mls/hr Q8HRS IV Last administered on 11/16/18at 06:21; Start 11/15/18 at 22:00 Vancomycin HCl 1.25 gm/Sodium Chloride 250 ml @ 166.667 mls/hr 1X ONCE IV Last administered on 11/15/18at 20:11; Start 11/15/18 at 20:00; Stop 11/15/18 at 21:29; Status DC Piperacillin Sod/ Tazobactam Sod 3.375 gm/Sodium Chloride 50 ml @ 100 mls/hr Q6HRS IV Last administered on 11/16/18at 11:01; Start 11/16/18 at 00:00 Morphine Sulfate (Morphine Sulfate) 2 mg PRN Q2HR PRN IV PAIN Last administered on 11/16/18at 11:25; Start 11/15/18 at 19:45 Vancomycin HCl 750 mg/Sodium Chloride 250 ml @ 250 mls/hr Q24H IV ; Start 11/16/18 at 20:00 Vancomycin HCl (Vancomycin Trough Level) 1 each 1X ONCE MC ; Start 11/17/18 at 19:30; Stop 11/17/18 at 19:31 Fluconazole/ Sodium Chloride 200 ml @ 100 mls/hr Q24H IV ; Start 11/16/18 at 08:15; Status Cancel Fluconazole/ Sodium Chloride 100 ml @ 100 mls/hr Q24H IV Last administered on 11/16/18at 09:44; Start 11/16/18 at 09:00 Influenza Virus Vaccine Quadrival (Afluria Quad 2019-20 (3yr Up) Syringe) 0.5 ml ONCE ONCE VAX IM Last administered on 11/16/18at 11:04; Start 11/16/18 at 10:30; Stop 11/16/18 at 10:31; Status DC Active Scripts Active Levaquin (Levofloxacin) 500 Mg Tablet 1 Tab PO DAILY Tamiflu (Oseltamivir Phosphate) 75 Mg Capsule 1 Cap PO BID Oxycodone Hcl 5 Mg Tablet 5 Mg PO PRN Q4HRS PRN Reported Simvastatin 40 Mg Tablet 2 Tab PO QHS Aricept (Donepezil Hcl) 5 Mg Tablet 1 Tab PO DAILY [place] 5-325 Tablet (Acetaminophen/Hydrocodone Bitart) 1 Each Tablet 1-2 Tab PO Q4-6HRS Tylenol (Acetaminophen) 325 Mg Tablet 1 Tab PO PRN Q4HRS Zoloft (Sertraline Hcl) 50 Mg Tablet 1 Tab PO DAILY Namenda (Memantine Hcl) 10 Mg Tablet 10 Mg PO DAILY Allergies Allergies: Coded Allergies: No Known Drug Allergies (Unverified , 06/14/14) Physical Exam General: Alert, Oriented X3, Cooperative, moderate distress MUSCULOSKELETAL: Abnormal exam of left (left hand with punctue wound to plamar side with swelling and redness around the wound site. Patient able to move fingers but with pain. Distal pulses intact.) Vitals VITALS Vital Signs Date Time Temp Pulse Resp B/P (MAP) Pulse Ox O2 Delivery O2 Flow Rate FiO2 11/16/18 11:25 Room Air 11/16/18 07:00 99.9 81 17 121/64 (83) 94 99.9 Labs Labs Laboratory Tests Test 11/15/18 17:29 White Blood Count 9.0 x10^3/uL (4.0-11.0) Red Blood Count 4.54 x10^6/uL (3.50-5.40) Hemoglobin 14.2 g/dL (12.0-15.5) Hematocrit 42.1 % (36.0-47.0) Mean Corpuscular Volume 93 fL (79-100) Mean Corpuscular Hemoglobin 31 pg (25-35) Mean Corpuscular Hemoglobin Concent 34 g/dL (31-37) Red Cell Distribution Width 13.3 % (11.5-14.5) Platelet Count 213 x10^3/uL (140-400) Neutrophils (%) (Auto) 71 % (31-73) Lymphocytes (%) (Auto) 23 % (24-48) Monocytes (%) (Auto) 6 % (0-9) Eosinophils (%) (Auto) 0 % (0-3) Basophils (%) (Auto) 1 % (0-3) Neutrophils # (Auto) 6.3 x10^3/uL (1.8-7.7) Lymphocytes # (Auto) 2.0 x10^3/uL (1.0-4.8) Monocytes # (Auto) 0.5 x10^3/uL (0.0-1.1) Eosinophils # (Auto) 0.0 x10^3/uL (0.0-0.7) Basophils # (Auto) 0.1 x10^3/uL (0.0-0.2) Sodium Level 146 mmol/L (136-145) Potassium Level 4.2 mmol/L (3.5-5.1) Chloride Level 107 mmol/L (98-107) Carbon Dioxide Level 29 mmol/L (21-32) Anion Gap 10 (6-14) Blood Urea Nitrogen 34 mg/dL (7-20) Creatinine 0.8 mg/dL (0.6-1.0) Estimated GFR (Cockcroft-Gault) 72.2 BUN/Creatinine Ratio 43 (6-20) Glucose Level 94 mg/dL (70-99) Calcium Level 9.6 mg/dL (8.5-10.1) Total Bilirubin 0.6 mg/dL (0.2-1.0) Aspartate Amino Transf (AST/SGOT) 26 U/L (15-37) Alanine Aminotransferase (ALT/SGPT) 27 U/L (14-59) Alkaline Phosphatase 69 U/L (46-116) Total Protein 7.9 g/dL (6.4-8.2) Albumin 4.6 g/dL (3.4-5.0) Albumin/Globulin Ratio 1.4 (1.0-1.7) Laboratory Tests Test 11/15/18 17:29 White Blood Count 9.0 x10^3/uL (4.0-11.0) Red Blood Count 4.54 x10^6/uL (3.50-5.40) Hemoglobin 14.2 g/dL (12.0-15.5) Hematocrit 42.1 % (36.0-47.0) Mean Corpuscular Volume 93 fL (79-100) Mean Corpuscular Hemoglobin 31 pg (25-35) Mean Corpuscular Hemoglobin Concent 34 g/dL (31-37) Red Cell Distribution Width 13.3 % (11.5-14.5) Platelet Count 213 x10^3/uL (140-400) Neutrophils (%) (Auto) 71 % (31-73) Lymphocytes (%) (Auto) 23 % (24-48) Monocytes (%) (Auto) 6 % (0-9) Eosinophils (%) (Auto) 0 % (0-3) Basophils (%) (Auto) 1 % (0-3) Neutrophils # (Auto) 6.3 x10^3/uL (1.8-7.7) Lymphocytes # (Auto) 2.0 x10^3/uL (1.0-4.8) Monocytes # (Auto) 0.5 x10^3/uL (0.0-1.1) Eosinophils # (Auto) 0.0 x10^3/uL (0.0-0.7) Basophils # (Auto) 0.1 x10^3/uL (0.0-0.2) Sodium Level 146 mmol/L (136-145) Potassium Level 4.2 mmol/L (3.5-5.1) Chloride Level 107 mmol/L (98-107) Carbon Dioxide Level 29 mmol/L (21-32) Anion Gap 10 (6-14) Blood Urea Nitrogen 34 mg/dL (7-20) Creatinine 0.8 mg/dL (0.6-1.0) Estimated GFR (Cockcroft-Gault) 72.2 BUN/Creatinine Ratio 43 (6-20) Glucose Level 94 mg/dL (70-99) Calcium Level 9.6 mg/dL (8.5-10.1) Total Bilirubin 0.6 mg/dL (0.2-1.0) Aspartate Amino Transf (AST/SGOT) 26 U/L (15-37) Alanine Aminotransferase (ALT/SGPT) 27 U/L (14-59) Alkaline Phosphatase 69 U/L (46-116) Total Protein 7.9 g/dL (6.4-8.2) Albumin 4.6 g/dL (3.4-5.0) Albumin/Globulin Ratio 1.4 (1.0-1.7) Images Images xrays indicate gas in left hand. Assessment/Plan Assessment/Plan Patient has puncture wound to left hand with swelling and redness and gas shown per xray. Pt is NPO and has been added onto surgery schedule for irrigation and debridement. Patient does not speak Wolof but daughters are here in room translating. Daughter is an RN here at [facility]. OLIVER DOYLE APRN Nov 16, 2018 11:42
--- NOTE | 2018-11-16 12:08 | CONS ---
DATE OF CONSULTATION: 11/16/2018 The patient is in room 582. REQUESTING PHYSICIAN: Dr. Valera and Dr. Ulrich. REASON FOR CONSULTATION: Puncture wound. HISTORY OF PRESENT ILLNESS: The patient is a 63-year-old female who states yesterday, she was walking around the yard with a stick in her left hand. Of note, it is somewhat of a barnyard type area. She was chasing goat. However, there are chickens and pigs in the area as well. There is question whether she had a metal pitchfork or a stick in her hand this morning, but she fell and suffered a puncture wound to the left hand. She states, she had fevers also states she had some shaking, but it was secondary to pain. She does not have any headaches, sinus issues, sore throat, cough or chest pain. No nausea, vomiting, diarrhea, dysuria or any other traumas. Denies any rashes. She was brought to [facility] on the 11/15/2018. Her white count was 9.8 with a normal differential. She had a normal creatinine, normal liver function study tests. She was afebrile and underwent an x-ray, which showed no acute fracture or dislocation; however, some inner soft tissue swelling with subcutaneous gas, no radiopaque foreign density. She was given a tetanus shot, also received a dose of Zosyn. I was consulted last evening and consulted Orthopedics for evaluation and instituted vancomycin, clindamycin as well as Zosyn. This morning, the patient is comfortable. Still has some pain in her hand. Her family member is here and helping with the translation. PAST MEDICAL HISTORY: Positive for hyperlipidemia, gastroesophageal reflux disease, osteoarthritis, anxiety, depression, dementia, anemia, history of cholelithiasis and cholecystitis. PAST SURGICAL HISTORY: Positive for cholecystectomy, appendectomy and hysterectomy. REVIEW OF SYSTEMS: Otherwise negative. ALLERGIES: No known drug allergies. SOCIAL HISTORY: No tobacco or alcohol. She has a very supportive family. FAMILY HISTORY: Positive for coronary artery disease and gallbladder disease. CURRENT MEDICATIONS: Include clindamycin, vancomycin as ordered and Zosyn. Again, she did receive a tetanus shot as well. PHYSICAL EXAMINATION: VITAL SIGNS: Temperature 99.8, pulse 61, respirations 16, blood pressure 98/53, satting 98% on room air. CONSTITUTIONAL: She is lying in bed. She appears comfortable. She is in no acute distress. HEENT: Pupils are equal and reactive. She has normal conjunctivae. Oral cavity, pharynx is clear. She has partial dentures. NECK: Supple. Good range of motion. LUNGS: Decreased in the bases. HEART: S1, S2. ABDOMEN: Soft, nontender, no guarding or rebound. EXTREMITIES: No clubbing, cyanosis. Her left hand is dressed. She is neurovascularly intact with cap refill. There is no gross erythema or rubs above the dressing or below the dressing, feet without complications and does have some onychomycoses. SKIN: Otherwise, warm to touch without signs of rash. NEUROLOGIC: She is nonfocal, answering questions. Moves extremities. PSYCHIATRIC: Affect is somewhat flat. LABORATORY DATA: White count 9, hemoglobin 14.2, platelets of 213, neutrophils 71 and lymphs are 23. Sodium 146, creatinine 0.8. Normal liver function study tests. Radiology reviewed in history of present illness. IMPRESSION: 1. Left hand puncture wound from a stick versus pitchfork on 11/15/2018. This morning, she stated it was a stick. 2. Barnyard exposure with chicken, goats and pigs. 3. Subjective fever. 4. Dementia. RECOMMENDATIONS: Again, she did get a tetanus shot on the 11/15/2018, where I started vancomycin, Zosyn and clindamycin on 11/15/2018 and consulted Orthopedics on the 11/15/2018. Await for further evaluation. We will add fluconazole now, but at a dose of 200 given her size and her renal function, hopeful to avoid any cardiac complications. We will follow up labs and cultures if obtained. This was discussed with the family and also discussed with the pharmacy. Thank you for allowing me to participate in the patient's care. If you have any questions, please do not hesitate to contact me. NAI GARCIA MD DR: [email or web address]/katy JOB#: [id number] / [id number]
[2018-11-16] MEDS ORDERED: IV RINGERS,LACTATED 1000ML 1,000 ML IV SCH (12:36)
[2018-11-16] MEDS ORDERED: fentaNYL PF VIAL 100 MCG/2 ML VIAL IV PRN ×2 (12:45)
[2018-11-16] MEDS ORDERED: HYDROmorphone 2 MG/ML VIAL IV PRN (12:45)
[2018-11-16] MEDS ORDERED: PROCHLORPERAZINE 10 MG/2 ML VIAL. IV PRN (12:45)
[2018-11-16] MEDS ORDERED: MORPHINE SULFATE 2 MG/ML VIAL. IV PRN (12:45)
[2018-11-16] MEDS: VANCOMYCIN PER PHARMACY MC PRN (13:41)
[2018-11-16] MEDS ORDERED: LIDOCAINE 2% PF 5 ML VIAL. ONE (14:02)
[2018-11-16] MEDS ORDERED: PROPOFOL 20 ML IV ONE (14:02)
[2018-11-16] MEDS ORDERED: ONDANSETRON PF 4 MG/2 ML VIAL. ONE (14:02)
[2018-11-16] MEDS ORDERED: DEXAMETHASONE SOD PHOS 4 MG/ML VIAL ONE (14:02)
[2018-11-16] MEDS ORDERED: fentaNYL PF VIAL 100 MCG/2 ML VIAL ONE (14:03)
[2018-11-16] MEDS ORDERED: ePHEDrine PF IN SALINE 50 MG/10 ML SYRINGE. IV ONE (15:21)
[2018-11-16] MEDS ORDERED: SEVOFLURANE 61 TO 120 MINUTES. IH ONE (15:55)
[2018-11-16] MEDS ORDERED: BUPIVACAINE-EPI 0.25%-1:200000 MPF 30 ML VIAL. INJ ONE (16:00)
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
[2018-11-16] MEDS ORDERED: VANCOMYCIN 750 MG in IV NORMAL SALINE 250ML 250 ML IV SCH (20:00)
[2018-11-17] MEDS: MORPHINE SULFATE 2 MG/ML VIAL. IV PRN ×4 (00:49→07:10)
[2018-11-17 03:00] VITALS: BP 123/66
[2018-11-17] MEDS: HYDROcodone/APAP 5/325MG 1 TAB TABLET PO PRN ×3 (04:29→16:49)
[2018-11-17 05:05] LABS: BASO % 0 % (0-3); EOS % 0 % (0-3); HEMATOCRIT 36.2 % (36.0-47.0); HEMOGLOBIN 12.3 g/dL (12.0-15.5); LYMPH # 0.5 x10^3/uL (1.0-4.8); LYMPH % 9 % (24-48); MEAN CORPUSCULAR HEMOGLOBIN 32 pg (25-35); MEAN CORPUSCULAR HGB CONC 34 g/dL (31-37); MEAN CORPUSCULAR VOLUME 93 fL (79-100); MONO # 0.2 x10^3/uL (0.0-1.1); MONO % 3 % (0-9); NEUT # 4.9 x10^3/uL (1.8-7.7); NEUT % 88 % (31-73); PLATELET COUNT 192 x10^3/uL (140-400); RED CELL DISTRIBUTION WIDTH 13.4 % (11.5-14.5); WHITE BLOOD COUNT 5.7 x10^3/uL (4.0-11.0)
[2018-11-17 05:24] LABS: ALBUMIN 3.4 g/dL (3.4-5.0); CALCIUM 8.6 mg/dL (8.5-10.1); CREATININE 0.7 mg/dL (0.6-1.0); GFR 84.2; POTASSIUM 3.7 mmol/L (3.5-5.1); TOTAL PROTEIN 6.9 g/dL (6.4-8.2)
[2018-11-17] MEDS: PIPERACILLIN/TAZOBACTAM 3.375 GM in IV NORMAL SALINE 50ML 50 ML IV SCH ×2 (06:26→11:17)
[2018-11-17 07:00] VITALS: BP 135/57
[2018-11-17] MEDS: CLINDAMYCIN 600MG PREMIX 50 ML IV SCH ×2 (07:09→13:49)
[2018-11-17 07:36] LABS: % BANDS 1 % (0-9); % LYMPHS 9 % (24-48); % SEGS 90 % (35-66); PLT ESTIMATE ADEQUATE (ADEQUATE)
[2018-11-17] MEDS: FLUCONAZOLE 200MG/100ML PREMIX 100 ML IV SCH (09:00)
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
[2018-11-17] MEDS ORDERED: ONDANSETRON PF 4 MG/2 ML VIAL. IVP PRN (09:45)
--- NOTE | 2018-11-17 09:47 | NUR ---
Flu vaccine given 11/16, see emar.
--- NOTE | 2018-11-17 10:52 | PDOC ---
PROGRESS NOTES Chief Complaint Chief Complaint PAST MEDICAL HISTORY: Dementia, arthritis, depression, hyperlipidemia, degenerative joint disease, appendectomy, and hysterectomy. ALLERGIES: None. FAMILY HISTORY: Hypertension. SOCIAL HISTORY: She does not drink, smoke or take drugs. MEDICATIONS: Reviewed, please refer to the MRAD. History of Present Illness History of Present Illness ASSESSMENT AND PLAN: POD # 1 Right hand wound with pitchfork through the hand with fecal debris on the pitchfork and incidental finding of gas forming organisms on imaging, could have Clostridium perfringens or some other gas forming organism. [place] accident admitted start IV Zosyn. consulted Infectious Disease. vancomycin IV Consult Orthopedics. DVT prophylaxis. IV fluids. Full code. she may need additional surgery or the infection could worsen/spread. D/W DAUGHTER IN ROOM 38 min pt exam, chart review, > 50% of time spent with exam, chart review, pt care coordination Vitals Vitals Vital Signs Date Time Temp Pulse Resp B/P (MAP) Pulse Ox O2 Delivery O2 Flow Rate FiO2 11/17/18 08:00 Room Air 11/17/18 07:40 18 11/17/18 07:10 97 11/17/18 07:00 97.7 53 135/57 (83) 97.7 11/17/18 05:30 2.0 Physical Exam Physical Exam CONSTITUTIONAL: She is sitting up in bed. She appears comfortable. She is in no acute distress. HEENT: Pupils are equal and reactive. She has normal conjunctivae. Oral cavity, pharynx is clear. She has partial dentures. NECK: Supple. Good range of motion. LUNGS: Decreased in the bases. HEART: S1, S2. ABDOMEN: Soft, nontender, no guarding or rebound. EXTREMITIES: No clubbing, cyanosis. Her left hand is dressed. She is neurovascularly intact with cap refill. There is no gross erythema or rubs above the dressing or below the dressing SKIN: Otherwise, warm to touch without signs of rash. NEUROLOGIC: She is nonfocal, answering questions. Moves extremities. PSYCHIATRIC: Affect is somewhat flat. General: Alert, Cooperative, No acute distress, Other (CONFUSED, BUT COOPERATIVE) Heart: Regular rate, Normal S1, Normal S2 Lungs: Clear Abdomen: Normal bowel sounds, Soft Extremities: No cyanosis, Other (the left hand has an open wound on the palm slightly longer than 1 cm. It is mostly longitudinal but slightly jagged, and is slightly distal to where a typical carpal tunnel incision and, distal to the palmar crease and distal to Agustin's cardinal line. There is no arterial bleeding. There is swelling of the entire palmar bursa and swelling of and tenderness of the first dorsal interosseous muscle. There does not seem to be any major tendon dysfunction, no evidence of compartment syndrome and her sensation is intact. There is erythema, tenderness warmth and swelling all consistent with infection.) Skin: Other (open wound left hand as above) Labs LABS Laboratory Tests Test 11/17/18 03:55 White Blood Count 5.7 x10^3/uL (4.0-11.0) Red Blood Count 3.90 x10^6/uL (3.50-5.40) Hemoglobin 12.3 g/dL (12.0-15.5) Hematocrit 36.2 % (36.0-47.0) Mean Corpuscular Volume 93 fL (79-100) Mean Corpuscular Hemoglobin 32 pg (25-35) Mean Corpuscular Hemoglobin Concent 34 g/dL (31-37) Red Cell Distribution Width 13.4 % (11.5-14.5) Platelet Count 192 x10^3/uL (140-400) Neutrophils (%) (Auto) 88 % (31-73) Lymphocytes (%) (Auto) 9 % (24-48) Monocytes (%) (Auto) 3 % (0-9) Eosinophils (%) (Auto) 0 % (0-3) Basophils (%) (Auto) 0 % (0-3) Neutrophils # (Auto) 4.9 x10^3/uL (1.8-7.7) Lymphocytes # (Auto) 0.5 x10^3/uL (1.0-4.8) Monocytes # (Auto) 0.2 x10^3/uL (0.0-1.1) Eosinophils # (Auto) 0.0 x10^3/uL (0.0-0.7) Basophils # (Auto) 0.0 x10^3/uL (0.0-0.2) Segmented Neutrophils % 90 % (35-66) Band Neutrophils % 1 % (0-9) Lymphocytes % 9 % (24-48) Platelet Estimate Adequate (ADEQUATE) Sodium Level 143 mmol/L (136-145) Potassium Level 3.7 mmol/L (3.5-5.1) Chloride Level 107 mmol/L (98-107) Carbon Dioxide Level 26 mmol/L (21-32) Anion Gap 10 (6-14) Blood Urea Nitrogen 13 mg/dL (7-20) Creatinine 0.7 mg/dL (0.6-1.0) Estimated GFR (Cockcroft-Gault) 84.2 BUN/Creatinine Ratio 19 (6-20) Glucose Level 157 mg/dL (70-99) Calcium Level 8.6 mg/dL (8.5-10.1) Total Bilirubin 1.0 mg/dL (0.2-1.0) Aspartate Amino Transf (AST/SGOT) 31 U/L (15-37) Alanine Aminotransferase (ALT/SGPT) 30 U/L (14-59) Alkaline Phosphatase 54 U/L (46-116) Total Protein 6.9 g/dL (6.4-8.2) Albumin 3.4 g/dL (3.4-5.0) Albumin/Globulin Ratio 1.0 (1.0-1.7) Assessment and Plan Assessmemt and Plan Problems Medical Problems: (1) Cellulitis Status: Acute (2) Puncture wound Status: Acute Comment Review of Relevant I have reviewed the following items cedric (where applicable) has been applied. Labs Laboratory Tests Test 11/15/18 17:29 11/17/18 03:55 White Blood Count 9.0 x10^3/uL (4.0-11.0) 5.7 x10^3/uL (4.0-11.0) Red Blood Count 4.54 x10^6/uL (3.50-5.40) 3.90 x10^6/uL (3.50-5.40) Hemoglobin 14.2 g/dL (12.0-15.5) 12.3 g/dL (12.0-15.5) Hematocrit 42.1 % (36.0-47.0) 36.2 % (36.0-47.0) Mean Corpuscular Volume 93 fL (79-100) 93 fL (79-100) Mean Corpuscular Hemoglobin 31 pg (25-35) 32 pg (25-35) Mean Corpuscular Hemoglobin Concent 34 g/dL (31-37) 34 g/dL (31-37) Red Cell Distribution Width 13.3 % (11.5-14.5) 13.4 % (11.5-14.5) Platelet Count 213 x10^3/uL (140-400) 192 x10^3/uL (140-400) Neutrophils (%) (Auto) 71 % (31-73) 88 % (31-73) Lymphocytes (%) (Auto) 23 % (24-48) 9 % (24-48) Monocytes (%) (Auto) 6 % (0-9) 3 % (0-9) Eosinophils (%) (Auto) 0 % (0-3) 0 % (0-3) Basophils (%) (Auto) 1 % (0-3) 0 % (0-3) Neutrophils # (Auto) 6.3 x10^3/uL (1.8-7.7) 4.9 x10^3/uL (1.8-7.7) Lymphocytes # (Auto) 2.0 x10^3/uL (1.0-4.8) 0.5 x10^3/uL (1.0-4.8) Monocytes # (Auto) 0.5 x10^3/uL (0.0-1.1) 0.2 x10^3/uL (0.0-1.1) Eosinophils # (Auto) 0.0 x10^3/uL (0.0-0.7) 0.0 x10^3/uL (0.0-0.7) Basophils # (Auto) 0.1 x10^3/uL (0.0-0.2) 0.0 x10^3/uL (0.0-0.2) Sodium Level 146 mmol/L (136-145) 143 mmol/L (136-145) Potassium Level 4.2 mmol/L (3.5-5.1) 3.7 mmol/L (3.5-5.1) Chloride Level 107 mmol/L (98-107) 107 mmol/L (98-107) Carbon Dioxide Level 29 mmol/L (21-32) 26 mmol/L (21-32) Anion Gap 10 (6-14) 10 (6-14) Blood Urea Nitrogen 34 mg/dL (7-20) 13 mg/dL (7-20) Creatinine 0.8 mg/dL (0.6-1.0) 0.7 mg/dL (0.6-1.0) Estimated GFR (Cockcroft-Gault) 72.2 84.2 BUN/Creatinine Ratio 43 (6-20) 19 (6-20) Glucose Level 94 mg/dL (70-99) 157 mg/dL (70-99) Calcium Level 9.6 mg/dL (8.5-10.1) 8.6 mg/dL (8.5-10.1) Total Bilirubin 0.6 mg/dL (0.2-1.0) 1.0 mg/dL (0.2-1.0) Aspartate Amino Transf (AST/SGOT) 26 U/L (15-37) 31 U/L (15-37) Alanine Aminotransferase (ALT/SGPT) 27 U/L (14-59) 30 U/L (14-59) Alkaline Phosphatase 69 U/L (46-116) 54 U/L (46-116) Total Protein 7.9 g/dL (6.4-8.2) 6.9 g/dL (6.4-8.2) Albumin 4.6 g/dL (3.4-5.0) 3.4 g/dL (3.4-5.0) Albumin/Globulin Ratio 1.4 (1.0-1.7) 1.0 (1.0-1.7) Segmented Neutrophils % 90 % (35-66) Band Neutrophils % 1 % (0-9) Lymphocytes % 9 % (24-48) Platelet Estimate Adequate (ADEQUATE) Laboratory Tests Test 11/17/18 03:55 White Blood Count 5.7 x10^3/uL (4.0-11.0) Red Blood Count 3.90 x10^6/uL (3.50-5.40) Hemoglobin 12.3 g/dL (12.0-15.5) Hematocrit 36.2 % (36.0-47.0) Mean Corpuscular Volume 93 fL (79-100) Mean Corpuscular Hemoglobin 32 pg (25-35) Mean Corpuscular Hemoglobin Concent 34 g/dL (31-37) Red Cell Distribution Width 13.4 % (11.5-14.5) Platelet Count 192 x10^3/uL (140-400) Neutrophils (%) (Auto) 88 % (31-73) Lymphocytes (%) (Auto) 9 % (24-48) Monocytes (%) (Auto) 3 % (0-9) Eosinophils (%) (Auto) 0 % (0-3) Basophils (%) (Auto) 0 % (0-3) Neutrophils # (Auto) 4.9 x10^3/uL (1.8-7.7) Lymphocytes # (Auto) 0.5 x10^3/uL (1.0-4.8) Monocytes # (Auto) 0.2 x10^3/uL (0.0-1.1) Eosinophils # (Auto) 0.0 x10^3/uL (0.0-0.7) Basophils # (Auto) 0.0 x10^3/uL (0.0-0.2) Segmented Neutrophils % 90 % (35-66) Band Neutrophils % 1 % (0-9) Lymphocytes % 9 % (24-48) Platelet Estimate Adequate (ADEQUATE) Sodium Level 143 mmol/L (136-145) Potassium Level 3.7 mmol/L (3.5-5.1) Chloride Level 107 mmol/L (98-107) Carbon Dioxide Level 26 mmol/L (21-32) Anion Gap 10 (6-14) Blood Urea Nitrogen 13 mg/dL (7-20) Creatinine 0.7 mg/dL (0.6-1.0) Estimated GFR (Cockcroft-Gault) 84.2 BUN/Creatinine Ratio 19 (6-20) Glucose Level 157 mg/dL (70-99) Calcium Level 8.6 mg/dL (8.5-10.1) Total Bilirubin 1.0 mg/dL (0.2-1.0) Aspartate Amino Transf (AST/SGOT) 31 U/L (15-37) Alanine Aminotransferase (ALT/SGPT) 30 U/L (14-59) Alkaline Phosphatase 54 U/L (46-116) Total Protein 6.9 g/dL (6.4-8.2) Albumin 3.4 g/dL (3.4-5.0) Albumin/Globulin Ratio 1.0 (1.0-1.7) Microbiology 11/15/18 Blood Culture - Preliminary, Resulted NO GROWTH AFTER 1 DAY Medications Current Medications Lidocaine HCl 20 ml 1X ONCE IJ Last administered on 11/15/18 16:45; Start 11/15/18 at 16:30; Stop 11/15/18 at 16:32; Status DC Diphtheria/ Tetanus/Acell Pertussis (Boostrix) 0.5 ml ONCE ONCE VAX IM Last administered on 11/15/18 16:47; Start 11/15/18 at 17:15; Stop 11/15/18 at 17:16; Status DC Piperacillin Sod/ Tazobactam Sod 3.375 gm/Sodium Chloride 50 ml @ 100 mls/hr 1X ONCE IV Last administered on 11/15/18 17:41; Start 11/15/18 at 18:00; Stop 11/15/18 at 18:29; Status DC Ondansetron HCl (Zofran) 4 mg PRN Q8HRS PRN IV NAUSEA/VOMITING; Start 11/15/18 at 17:15; Stop 11/16/18 at 17:14; Status DC Sodium Chloride 500 ml @ 500 mls/hr 1X ONCE IV Last administered on 11/15/18 18:27; Start 11/15/18 at 17:30; Stop 11/15/18 at 18:29; Status DC Fentanyl Citrate (Fentanyl 2ml Vial) 50 mcg 1X ONCE IV Last administered on 11/15/18 18:32; Start 11/15/18 at 18:45; Stop 11/15/18 at 18:46; Status DC Piperacillin Sod/ Tazobactam Sod (Zosyn Per Pharmacy) 1 each PRN DAILY PRN MC SEE COMMENTS; Start 11/15/18 at 19:45 Vancomycin HCl (Vanco Per Pharmacy) 1 each PRN DAILY PRN MC SEE COMMENTS Last administered on 11/16/18at 13:41; Start 11/15/18 at 19:45 Clindamycin Phosphate 50 ml @ 100 mls/hr Q8HRS IV Last administered on 11/17/18at 07:09; Start 11/15/18 at 22:00 Vancomycin HCl 1.25 gm/Sodium Chloride 250 ml @ 166.667 mls/hr 1X ONCE IV Last administered on 11/15/18 20:11; Start 11/15/18 at 20:00; Stop 11/15/18 at 21:29; Status DC Piperacillin Sod/ Tazobactam Sod 3.375 gm/Sodium Chloride 50 ml @ 100 mls/hr Q6HRS IV Last administered on 11/17/18at 06:26; Start 11/16/18 at 00:00 Morphine Sulfate (Morphine Sulfate) 2 mg PRN Q2HR PRN IV PAIN Last administered on 11/17/18at 07:10; Start 11/15/18 at 19:45 Vancomycin HCl 750 mg/Sodium Chloride 250 ml @ 250 mls/hr Q24H IV Last administered on 11/16/18at 20:09; Start 11/16/18 at 20:00 Vancomycin HCl (Vancomycin Trough Level) 1 each 1X ONCE MC ; Start 11/17/18 at 19:30; Stop 11/17/18 at 19:31 Fluconazole/ Sodium Chloride 200 ml @ 100 mls/hr Q24H IV ; Start 11/16/18 at 08:15; Status Cancel Fluconazole/ Sodium Chloride 100 ml @ 100 mls/hr Q24H IV Last administered on 11/17/18at 09:00; Start 11/16/18 at 09:00 Influenza Virus Vaccine Quadrival (Afluria Quad 2019-20 (3yr Up) Syringe) 0.5 ml ONCE ONCE VAX IM Last administered on 11/16/18at 11:04; Start 11/16/18 at 10:30; Stop 11/16/18 at 10:31; Status DC Fentanyl Citrate (Fentanyl 2ml Vial) 25 mcg PRN Q5MIN PRN IV MILD PAIN 1-3; Start 11/16/18 at 12:45; Stop 11/16/18 at 19:00; Status DC Fentanyl Citrate (Fentanyl 2ml Vial) 50 mcg PRN Q5MIN PRN IV MODERATE TO SEVERE PAIN Last administered on 11/16/18at 16:33; Start 11/16/18 at 12:45; Stop 11/16/18 at 19:00; Status DC Morphine Sulfate (Morphine Sulfate) 1 mg PRN Q10MIN PRN IV SEVERE PAIN 7-10; Start 11/16/18 at 12:45; Stop 11/16/18 at 19:00; Status DC Ringer's Solution 1,000 ml @ 30 mls/hr Q24H IV Last administered on 11/16/18at 14:40; Start 11/16/18 at 12:36; Stop 11/17/18 at 00:35; Status DC Hydromorphone HCl (Dilaudid) 0.5 mg PRN Q10MIN PRN IV SEV PAIN, Second choice; Start 11/16/18 at 12:45; Stop 11/16/18 at 19:00; Status DC Prochlorperazine Edisylate (Compazine) 5 mg PACU PRN PRN IV NAUSEA, MRX1; Start 11/16/18 at 12:45; Stop 11/16/18 at 19:00; Status DC Propofol 20 ml @ As Directed STK-MED ONCE IV ; Start 11/16/18 at 14:02; Stop 11/16/18 at 14:03; Status DC Dexamethasone Sodium Phosphate (Decadron) 4 mg STK-MED ONCE .ROUTE ; Start 11/16/18 at 14:02; Stop 11/16/18 at 14:03; Status DC Lidocaine HCl (Lidocaine Pf 2% Vial) 5 ml STK-MED ONCE .ROUTE ; Start 11/16/18 at 14:02; Stop 11/16/18 at 14:03; Status DC Ondansetron HCl (Zofran) 4 mg STK-MED ONCE .ROUTE ; Start 11/16/18 at 14:02; Stop 11/16/18 at 14:03; Status DC Fentanyl Citrate (Fentanyl 2ml Vial) 100 mcg STK-MED ONCE .ROUTE ; Start 11/16/18 at 14:03; Stop 11/16/18 at 14:03; Status DC Ephedrine Sulfate (ePHEDrine PF IN SALINE SYRINGE) 50 mg STK-MED ONCE IV ; Start 11/16/18 at 15:21; Stop 11/16/18 at 15:21; Status DC Bupivacaine HCl/ Epinephrine Bitart (Sensorcaine-Epi 0.25%-1:499465 Mpf) 30 ml 1X ONCE INJ Last administered on 11/16/18at 16:00; Start 11/16/18 at 16:00; Stop 11/16/18 at 16:01; Status DC Sevoflurane (Ultane) 60 ml STK-MED ONCE IH ; Start 11/16/18 at 15:55; Stop 11/16/18 at 15:55; Status DC Acetaminophen/ Hydrocodone Bitart (Lortab 5/325) 1 tab PRN Q3HRS PRN PO MODERATE PAIN 4-6 Last administered on 11/17/18at 04:29; Start 11/17/18 at 04:15 Ondansetron HCl (Zofran) 4 mg PRN Q6HRS PRN IVP NAUSEA/VOMITING Last administered on 11/17/18at 10:10; Start 11/17/18 at 09:45 Active Scripts Active Levaquin (Levofloxacin) 500 Mg Tablet 1 Tab PO DAILY Tamiflu (Oseltamivir Phosphate) 75 Mg Capsule 1 Cap PO BID Oxycodone Hcl 5 Mg Tablet 5 Mg PO PRN Q4HRS PRN Reported Simvastatin 40 Mg Tablet 2 Tab PO QHS Aricept (Donepezil Hcl) 5 Mg Tablet 1 Tab PO DAILY [place] 5-325 Tablet (Acetaminophen/Hydrocodone Bitart) 1 Each Tablet 1-2 Tab PO Q4-6HRS Tylenol (Acetaminophen) 325 Mg Tablet 1 Tab PO PRN Q4HRS Zoloft (Sertraline Hcl) 50 Mg Tablet 1 Tab PO DAILY Namenda (Memantine Hcl) 10 Mg Tablet 10 Mg PO DAILY Vitals/I & O Vital Sign - Last 24 Hours 11/16/18 11/16/18 11/16/18 11/16/18 11:00 11:25 12:38 14:00 Temp 99.0 99.0 99.0 99.0 Pulse 50 53 Resp 17 18 B/P (MAP) 107/74 (85) 121/63 Pulse Ox 95 95 O2 Delivery Room Air Room Air Room Air Room Air 11/16/18 11/16/18 11/16/18 11/16/18 16:15 16:15 16:33 16:34 Temp 97 97.0 Pulse 69 67 Resp 17 16 16 B/P (MAP) 168/90 165/88 Pulse Ox 100 100 100 O2 Delivery Simple Mask Mask Nasal Cannula Nasal Cannula O2 Flow Rate 10 10 4.0 4 11/16/18 11/16/18 11/16/18 11/16/18 16:46 16:54 17:01 17:20 Temp 97.3 97.3 Pulse 68 68 Resp 16 17 16 B/P (MAP) 161/86 145/85 153/85 (107) Pulse Ox 100 100 97 O2 Delivery Nasal Cannula Nasal Cannula Room Air Nasal Cannula O2 Flow Rate 2 2 2.0 11/16/18 11/16/18 11/16/18 11/16/18 17:39 17:59 18:28 20:00 Temp 98.0 98.0 Pulse 65 62 64 65 B/P (MAP) 145/84 (104) 134/75 (94) 126/70 (88) 108/54 (72) Pulse Ox 97 98 98 93 O2 Delivery Room Air O2 Flow Rate 2.0 2.0 11/16/18 11/16/18 11/17/18 11/17/18 21:00 23:00 00:49 01:19 Temp 98.2 98.3 98.2 98.3 Pulse 69 69 Resp 18 18 20 18 B/P (MAP) 125/65 (85) 116/56 (76) Pulse Ox 93 97 97 97 O2 Delivery Room Air Room Air Room Air 11/17/18 11/17/18 11/17/18 11/17/18 03:00 03:04 03:34 04:29 Temp 97.7 97.7 Pulse 53 Resp 18 20 15 20 B/P (MAP) 123/66 (85) Pulse Ox 93 97 97 97 O2 Delivery Room Air Room Air 11/17/18 11/17/18 11/17/18 11/17/18 05:00 05:30 05:30 07:00 Temp 97.7 97.7 Pulse 53 Resp 18 18 18 16 B/P (MAP) 135/57 (83) Pulse Ox 97 97 97 94 O2 Delivery Room Air Room Air Room Air Room Air O2 Flow Rate 2.0 2.0 11/17/18 11/17/18 11/17/18 07:10 07:40 08:00 Resp 18 18 Pulse Ox 97 O2 Delivery Room Air Room Air Room Air Intake and Output 11/16/18 11/16/18 11/17/18 14:59 22:59 06:59 Intake Total 980 ml 0 ml Output Total 25 ml Balance 955 ml 0 ml DOMENICA CHEUNG MD Nov 17, 2018 10:52
[2018-11-17 11:00] VITALS: BP 153/77
[2018-11-17] MEDS: VANCOMYCIN PER PHARMACY MC PRN (14:30)
[2018-11-17 15:00] VITALS: BP 134/76
[2018-11-17] MEDS ORDERED: LACTOBACILLUS RHAMNOSUS GG 1 CAPSULE. PO SCH (15:00)
--- NOTE | 2018-11-17 16:32 | PDOC ---
PROGRESS NOTES Subjective Subjective Feels better and wants to go home Objective Vital Signs Vital Signs Date Time Temp Pulse Resp B/P (MAP) Pulse Ox O2 Delivery O2 Flow Rate FiO2 11/17/18 15:00 98.1 50 17 134/76 (95) 98 Room Air 98.1 11/17/18 05:30 2.0 Physical Exam She has a new dressing in place. She has good active range of motion of the fingers and no numbness. Slight pain with active range of motion. Labs Laboratory Tests Test 11/15/18 17:29 11/17/18 03:55 White Blood Count 9.0 x10^3/uL (4.0-11.0) 5.7 x10^3/uL (4.0-11.0) Red Blood Count 4.54 x10^6/uL (3.50-5.40) 3.90 x10^6/uL (3.50-5.40) Hemoglobin 14.2 g/dL (12.0-15.5) 12.3 g/dL (12.0-15.5) Hematocrit 42.1 % (36.0-47.0) 36.2 % (36.0-47.0) Mean Corpuscular Volume 93 fL (79-100) 93 fL (79-100) Mean Corpuscular Hemoglobin 31 pg (25-35) 32 pg (25-35) Mean Corpuscular Hemoglobin Concent 34 g/dL (31-37) 34 g/dL (31-37) Red Cell Distribution Width 13.3 % (11.5-14.5) 13.4 % (11.5-14.5) Platelet Count 213 x10^3/uL (140-400) 192 x10^3/uL (140-400) Neutrophils (%) (Auto) 71 % (31-73) 88 % (31-73) Lymphocytes (%) (Auto) 23 % (24-48) 9 % (24-48) Monocytes (%) (Auto) 6 % (0-9) 3 % (0-9) Eosinophils (%) (Auto) 0 % (0-3) 0 % (0-3) Basophils (%) (Auto) 1 % (0-3) 0 % (0-3) Neutrophils # (Auto) 6.3 x10^3/uL (1.8-7.7) 4.9 x10^3/uL (1.8-7.7) Lymphocytes # (Auto) 2.0 x10^3/uL (1.0-4.8) 0.5 x10^3/uL (1.0-4.8) Monocytes # (Auto) 0.5 x10^3/uL (0.0-1.1) 0.2 x10^3/uL (0.0-1.1) Eosinophils # (Auto) 0.0 x10^3/uL (0.0-0.7) 0.0 x10^3/uL (0.0-0.7) Basophils # (Auto) 0.1 x10^3/uL (0.0-0.2) 0.0 x10^3/uL (0.0-0.2) Sodium Level 146 mmol/L (136-145) 143 mmol/L (136-145) Potassium Level 4.2 mmol/L (3.5-5.1) 3.7 mmol/L (3.5-5.1) Chloride Level 107 mmol/L (98-107) 107 mmol/L (98-107) Carbon Dioxide Level 29 mmol/L (21-32) 26 mmol/L (21-32) Anion Gap 10 (6-14) 10 (6-14) Blood Urea Nitrogen 34 mg/dL (7-20) 13 mg/dL (7-20) Creatinine 0.8 mg/dL (0.6-1.0) 0.7 mg/dL (0.6-1.0) Estimated GFR (Cockcroft-Gault) 72.2 84.2 BUN/Creatinine Ratio 43 (6-20) 19 (6-20) Glucose Level 94 mg/dL (70-99) 157 mg/dL (70-99) Calcium Level 9.6 mg/dL (8.5-10.1) 8.6 mg/dL (8.5-10.1) Total Bilirubin 0.6 mg/dL (0.2-1.0) 1.0 mg/dL (0.2-1.0) Aspartate Amino Transf (AST/SGOT) 26 U/L (15-37) 31 U/L (15-37) Alanine Aminotransferase (ALT/SGPT) 27 U/L (14-59) 30 U/L (14-59) Alkaline Phosphatase 69 U/L (46-116) 54 U/L (46-116) Total Protein 7.9 g/dL (6.4-8.2) 6.9 g/dL (6.4-8.2) Albumin 4.6 g/dL (3.4-5.0) 3.4 g/dL (3.4-5.0) Albumin/Globulin Ratio 1.4 (1.0-1.7) 1.0 (1.0-1.7) Segmented Neutrophils % 90 % (35-66) Band Neutrophils % 1 % (0-9) Lymphocytes % 9 % (24-48) Platelet Estimate Adequate (ADEQUATE) Laboratory Tests Test 11/17/18 03:55 White Blood Count 5.7 x10^3/uL (4.0-11.0) Red Blood Count 3.90 x10^6/uL (3.50-5.40) Hemoglobin 12.3 g/dL (12.0-15.5) Hematocrit 36.2 % (36.0-47.0) Mean Corpuscular Volume 93 fL (79-100) Mean Corpuscular Hemoglobin 32 pg (25-35) Mean Corpuscular Hemoglobin Concent 34 g/dL (31-37) Red Cell Distribution Width 13.4 % (11.5-14.5) Platelet Count 192 x10^3/uL (140-400) Neutrophils (%) (Auto) 88 % (31-73) Lymphocytes (%) (Auto) 9 % (24-48) Monocytes (%) (Auto) 3 % (0-9) Eosinophils (%) (Auto) 0 % (0-3) Basophils (%) (Auto) 0 % (0-3) Neutrophils # (Auto) 4.9 x10^3/uL (1.8-7.7) Lymphocytes # (Auto) 0.5 x10^3/uL (1.0-4.8) Monocytes # (Auto) 0.2 x10^3/uL (0.0-1.1) Eosinophils # (Auto) 0.0 x10^3/uL (0.0-0.7) Basophils # (Auto) 0.0 x10^3/uL (0.0-0.2) Segmented Neutrophils % 90 % (35-66) Band Neutrophils % 1 % (0-9) Lymphocytes % 9 % (24-48) Platelet Estimate Adequate (ADEQUATE) Sodium Level 143 mmol/L (136-145) Potassium Level 3.7 mmol/L (3.5-5.1) Chloride Level 107 mmol/L (98-107) Carbon Dioxide Level 26 mmol/L (21-32) Anion Gap 10 (6-14) Blood Urea Nitrogen 13 mg/dL (7-20) Creatinine 0.7 mg/dL (0.6-1.0) Estimated GFR (Cockcroft-Gault) 84.2 BUN/Creatinine Ratio 19 (6-20) Glucose Level 157 mg/dL (70-99) Calcium Level 8.6 mg/dL (8.5-10.1) Total Bilirubin 1.0 mg/dL (0.2-1.0) Aspartate Amino Transf (AST/SGOT) 31 U/L (15-37) Alanine Aminotransferase (ALT/SGPT) 30 U/L (14-59) Alkaline Phosphatase 54 U/L (46-116) Total Protein 6.9 g/dL (6.4-8.2) Albumin 3.4 g/dL (3.4-5.0) Albumin/Globulin Ratio 1.0 (1.0-1.7) Assessment Assessment POD#1 after incision and drainage of multiple palmar bursa for open contaminated wound with early evidence of infection Plan Plan of Care I believe it's reasonable to treat this as an outpatient now with further antibiotics, and I will see her in the office next week for probable suture removal. I wrote a prescription for Lortab and Dr. Mary wrote for antibiotics/antifungals. EUN HANSEN MD Nov 17, 2018 16:32
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
[2018-11-17] MEDS ORDERED: LACT1CAP19 PO (16:53)
[2018-11-17] MEDS ORDERED: AMOX1TAB58 PO (16:53)
--- NOTE | 2018-11-17 16:55 | DISCH ---
DISCHARGE INSTRUCTIONS Condition on Discharge Condition on Discharge: Guarded Activity After Discharge Activity Instructions for Disc: Avoid exertion Bathing Instructions: No Tub Bath until see Lifting Instructions after Dis: Do not lift >10 pounds Driving Instructions after Dis: Do not drive Weight Bearing Status after Di: As tolerated Diet after Discharge Diet after Discharge: Regular Diet Texture: Regular Wound Incision Care Wound/Incision Care: Reinforce dressing PRN Wound Care Equipment: Dressings Contacting the DRMary Jane after DC Call your doctor for: If your condition worsens Warfarin Follow-Up Warfarin Follow UP: see dr lynch in 5-7 days DOMENICA CHEUNG MD Nov 17, 2018 16:55
[2018-11-17] MEDS ORDERED: FLUC200T4 PO ×2 (17:02→17:04)
--- NOTE | 2018-11-17 17:40 | NUR ---
Dr. Mckeon notified patient and family wanting discharge and OK with Dr. Jones. See orders. Patient discharge instructions, medications and prescriptions reviewed with Patience patient's daughter and she received dressings for dressing change if patient's bandage becomes soiled or wet. Patience demarco. understanding all instructions and denies questions. Patient discharged to home with family with all belongings, instructions and prescriptions.
== END 2018-11-17 17:45 | disposition home or self-care (01) | DRG 513 ==
LOC: ER 16:03 → 5 SOUTH 17:15
PROVIDERS: ADMIT Internal Medicine; ATTEND Internal Medicine
PROC: 0M980ZZ Drainage of Left Hand Bursa and Ligament, Open Approach (ICD-10-PCS; principal; 2018-11-16 14:30)
DX: M71.04 Abscess of bursa, hand (principal); L03.114 Cellulitis of left upper limb; S61.432A Puncture wound without foreign body of left hand, initial encounter; F32.9 Major depressive disorder, single episode, unspecified; F41.9 Anxiety disorder, unspecified; E78.00 Pure hypercholesterolemia, unspecified; E78.5 Hyperlipidemia, unspecified; F03.90 Unspecified dementia, unspecified severity, without behavioral disturbance, psychotic disturbance, mood disturbance, and anxiety; I10 Essential (primary) hypertension; K21.9 Gastro-esophageal reflux disease without esophagitis; M65.30 Trigger finger, unspecified finger; Z82.49 Family history of ischemic heart disease and other diseases of the circulatory system; Z90.49 Acquired absence of other specified parts of digestive tract; Z90.710 Acquired absence of both cervix and uterus
CPT/HCPCS: 36415; 73130; 80053; 85007; 85025; 87040; 87071; 87075; 90471; 90686; 90715; 96361; 96365; 96375; A7015; J0171; J1100; J1450; J2001; J2270; J2405; J2543; J2704; J3010; J3370; J3490; J7040; J7050; J7120; 99285-25; A4461; G0378; J7030